=== PATIENT | male | born 1940 ===

== ENCOUNTER 2018-10-19 09:39 | Outpatient (CLI) | payer SELFPAY | END 2018-10-19 09:40 | disposition home or self-care (01) | LOC: C.LAB 09:39 | DX: N39.0 Urinary tract infection, site not specified (principal); I10 Essential (primary) hypertension; E11.9 Type 2 diabetes mellitus without complications; N41.9 Inflammatory disease of prostate, unspecified; D64.9 Anemia, unspecified; E78.00 Pure hypercholesterolemia, unspecified ==

== ENCOUNTER 2018-10-26 10:12 | Outpatient (CLI) | payer OTHER, SELFPAY | END 2018-10-26 10:13 | disposition home or self-care (01) | LOC: C.USIC 10:12 | DX: R18.8 Other ascites (principal); R10.9 Unspecified abdominal pain ==

== ENCOUNTER 2018-10-29 09:32 | Outpatient (CLI) | payer OTHER | END 2018-10-29 09:33 | disposition home or self-care (01) | LOC: C.LAB 09:32 | DX: K86.0 Alcohol-induced chronic pancreatitis (principal) ==

== ENCOUNTER 2018-11-01 08:01 | Outpatient (CLI) | payer OTHER | END 2018-11-01 08:02 | disposition home or self-care (01) | LOC: C.CTH 08:01 ==

== ENCOUNTER 2018-11-06 11:28 | Outpatient (CLI) | payer OTHER | END 2018-11-06 11:29 | disposition home or self-care (01) | LOC: C.EKG 11:28 | DX: Z01.818 Encounter for other preprocedural examination (principal) ==

== ENCOUNTER 2018-11-15 09:48 | Outpatient (CLI) | payer OTHER | END 2018-11-15 09:49 | disposition home or self-care (01) | LOC: C.PAT 09:48 | DX: K80.20 Calculus of gallbladder without cholecystitis without obstruction (principal) ==

== ENCOUNTER 2018-11-19 12:37 | Outpatient (CLI) | payer OTHER | END 2018-11-19 12:38 | disposition home or self-care (01) | LOC: C.RADH 12:37 | DX: J06.9 Acute upper respiratory infection, unspecified (principal) ==

== ENCOUNTER 2018-11-28 09:57 | Inpatient (IN) | payer MEDICAID, OTHER ==
[2018-11-28 10:40] VITALS: BMI 30.2
[2018-11-28] MEDS ORDERED: Iohexol 240 (50 ml) ONE (12:13)
[2018-11-28] MEDS ORDERED: Clindamycin 600mg/50ml NS 600 MG/50 ML BAG IVPB ONE (12:13)
[2018-11-28] MEDS ORDERED: Propofol 10 mg/ml Inj (20 ML) ONE (12:19)
[2018-11-28] MEDS ORDERED: Midazolam 2 MG/2 ML VIAL ONE (12:19)
[2018-11-28 14:00] LABS: HEMOGLOBIN 11.8 g/dL (12.0-18.0)
[2018-11-28] MEDS ORDERED: BUPIVACAINE 0.125%/0.9% NACL 600 ML IJ ONE (14:00)
[2018-11-28] MEDS ORDERED: Bupivacaine HCl 0.5% PF (10 ml) Inj ONE (14:07)
[2018-11-28] MEDS ORDERED: Rocuronium 10 mg/ml (5 ml) ONE (14:26)
[2018-11-28] MEDS ORDERED: Neostigmine 1:1000 (1 mg/ml) Inj ONE (14:29)
[2018-11-28] MEDS ORDERED: HYDROmorphone 0.5 mg/0.5 ml ISec IVP PRN ×2 (15:23→16:44)
[2018-11-28] MEDS ORDERED: Dextrose 50% SYRINGE Inj (50 ml) IV PRN (15:34)
[2018-11-28] MEDS ORDERED: Glucagon Recombinant 1 mg Inj IM PRN (15:34)
--- NOTE | 2018-11-28 15:37 | PCM.SURG1 ---
Surgeon's Initial Post Op Note - Surgeon's Notes Surgeon: Dr. Lopes Relay Assembler: Dr. Owen PGY3 Type of Anesthesia: General Endo Pre-Operative Diagnosis: chonic cholecystitis Operative Findings: see dictation Post-Operative Diagnosis: same Operation Performed: laparoscopic, converted to open, subtotal cholecystectomy Specimen/Specimens Removed: gallbladder Estimated Blood Loss: EBL {In ML}: 350 Blood Products Given: N/A Drains Used: Louis Post-Op Condition: Good Date of Surgery/Procedure: 11/28/18 Time of Surgery/Procedure: 15:37
--- NOTE | 2018-11-28 15:56 | CP.PCM.CON ---
History of Present Illness - History of Present Illness History of Present Illness: HOSPITALIST SERVICE 78M with a PMHx PMHx of DM II and BPH Patient was supposed to get a laparoscopic cholecystectomy on 11/19/18 but had a cough on 11/15 so it was postponed to today. Pt is now admitted s/p partial open cholecystectomy today w/ Dr Lopes. Medicine team was consulted to manage his DM. Pt is currently s/p anesthesia and has now current complaints. Pt reports he is compliant with his medications and reads his glucoses regularly. Pt has not drank alcohol or smoked tobacco in over 20 years and has permanantly quit. Pt denies any new onset abdominal pain since the surgery. PMHx: PMHx of DM II and BPH Sx: Cataract 2015 FH: denies soc: former smoker, former alcoholic Allergies: penicillin- rash Home Rx: Lantus 20 HS Linagliptin 5 qd Metformin 850 q8hrs Flomax 0.4 Proscar 5mg hs Review of Systems - Hematologic/Lymphatic Additional comments: HEENT No headaches, No blurry vision, No eye discharge, No hearing loss, No tinnitus, No sore throat. Cardiovascular No chest pain, No palpitation, No shortness of breath, No dyspnea on exertion. Respiratory No Shortness of breath, No cough, No diffuculty breathing. Gastrointestinal No nausea, No vomiting, 1 episode of diarrhea, No constipation, No blood in stool, generalized abdominal pain. Gentiourinary dysuria, frequency, No urgency, . Skin No rashes . Musculoskeletal No joint pain , No muscle weakness , No joint deformity. Past Patient History - Past Medical History & Family History Past Medical History?: Yes - Past Social History Smoking Status: Former Smoker - CARDIAC Hx Hypertension: Yes - PULMONARY Hx Respiratory Disorders: Yes Other/Comment: SOB ON EXERTION - NEUROLOGICAL Hx Neurological Disorder: No - HEENT Hx HEENT Problems: Yes Hx Cataracts: Yes - RENAL Hx Chronic Kidney Disease: No - ENDOCRINE/METABOLIC Hx Endocrine Disorders: Yes Hx Diabetes Mellitus Type 2: Yes - HEMATOLOGICAL/ONCOLOGICAL Hx Blood Disorders: No - INTEGUMENTARY Hx Dermatological Problems: No - MUSCULOSKELETAL/RHEUMATOLOGICAL Hx Musculoskeletal Disorders: Yes Other/Comment: DIFFICULTY WALKING USES CANE - GASTROINTESTINAL Hx Gastrointestinal Disorders: Yes Hx Gall Bladder Disease: Yes - GENITOURINARY/GYNECOLOGICAL Hx Genitourinary Disorders: Yes Hx Prostate Problems: Yes - PSYCHIATRIC Hx Psychophysiologic Disorder: No - SURGICAL HISTORY Hx Surgeries: Yes Hx Cataract Extraction: Yes (BOTH EYES) Hx Eye Surgery: Yes - ANESTHESIA Hx Anesthesia: Yes Hx Anesthesia Reactions: No Hx Malignant Hyperthermia: No Has any member of the family had a problem w/ anesthesia?: No Meds Allergies/Adverse Reactions: Allergies Allergy/AdvReac Type Severity Reaction Status Date / Time Penicillins Allergy Intermediate RASH Verified 11/16/18 10:45 trimethoprim Allergy Intermediate RASH Verified 11/28/18 10:52 - Medications Medications: Current Medications Acetaminophen (Tylenol 325mg Tab) 650 mg PO Q6 [facility] Dextrose (Dextrose 50% Inj) 0 ml IV STAT PRN; Protocol PRN Reason: Hypoglycemia Protocol Dextrose (Glutose 15) 0 gm PO ONCE PRN; Protocol PRN Reason: Hypoglycemia Protocol Docusate Sodium (Colace) 100 mg PO BID PRN PRN Reason: Constipation Finasteride (Proscar) 5 mg PO DAILY [facility] Glucagon (Glucagen Diagnostic Kit) 0 mg IM STAT PRN; Protocol PRN Reason: Hypoglycemia Protocol Home Med (Linagliptin [Tradjenta]) 1 tab PO DAILY [facility] Hydromorphone/Sodium Chloride (Dilaudid System Architect) 6 mg IV Q4H PRN; Protocol PRN Reason: Pain, moderate (4-7) BUPIVACAINE 0.125%/0.9% NACL (Bupivacaine-Ns 0.125% On-Q Customer Relations Representative) 600 mls @ 4 mls/hr IJ ONCE ONE Stop: 12/04/18 19:59 Acetaminophen (Ofirmev) 100 mls @ 400 mls/hr IV ONCE ONE Stop: 11/28/18 16:14 Dextrose/Sodium Chloride (Dextrose 5%/0.45% Ns 1000 Ml) 1,000 mls @ 100 mls/hr IV .Q10H [facility] Dextrose (Dextrose 5% In Water 1000 Ml) 1,000 mls @ 0 mls/hr IV .Q0M PRN; P rotocol PRN Reason: Hypoglycemia Protocol Insulin Human Regular (Novolin R) 0 unit SC ACHS [facility]; Protocol Metformin HCl (Glucophage) 850 mg PO TID [facility] Ondansetron HCl (Zofran Inj) 4 mg IVP ONCE PRN PRN Reason: Nausea/Vomiting Stop: 11/28/18 17:22 Ondansetron HCl (Zofran Inj) 4 mg IVP Q4 PRN PRN Reason: Nausea/Vomiting Tamsulosin HCl (Flomax) 0.4 mg PO DAILY [facility] Results - Vital Signs Recent Vital Signs: Last Vital Signs Temp 98.4 F 11/28/18 10:16 Pulse 70 11/28/18 10:16 Resp 18 11/28/18 10:16 BP 146/75 11/28/18 10:16 Pulse Ox 97 11/28/18 10:16 - Labs Result Diagrams: 11/28/18 15:55 Labs: Laboratory Results - last 24 hr 11/28/18 11/28/18 11/28/18 10:26 13:53 13:53 Hgb 11.8 L Hct 34.8 L POC Glucose (mg/dL) 78 Blood Type O POSITIVE Antibody Screen Negative 11/28/18 15:42 Hgb Hct POC Glucose (mg/dL) 106 Blood Type Antibody Screen Assessment & Plan - Assessment and Plan (Free Text) Assessment: 78M admitted for a patial open cholecystectomy Plan: Open Partial Cholecystectomy Sx today w/ Dr Lopes- partila resection of gallbladder tylenol 650 q6 for fevers Dilaudid 6 q4 prn colace 100 BID PRN zofran 4 q4 prn DM2 Lantus 20 HS- hold until Pt is eating ISS Metformin 850 q8 Accuchecks ACHS Liquid Diet BPH Proscar 5mg HS Flomax 0.4 daily Monitor I&Os PPX: Liquid Diet Hypoglycemic protocol
[2018-11-28 15:58] LABS: BASO # 0.1 K/uL (0.0-0.2); BASO % 0.7 % (0.0-2.0); EOS # 0.2 K/uL (0.0-0.7); EOS % 1.4 % (0.0-4.0); HEMOGLOBIN 10.9 g/dL (12.0-18.0); LYMPH # 2.2 K/uL (1.0-4.3); LYMPH % 18.1 % (20.0-40.0); MEAN CELL VOLUME 87.3 fL (80.0-94.0); MEAN CORPUSCULAR HEMOGLOBIN 29.2 pg (27.0-31.0); MEAN CORPUSCULAR HGB CONC 33.4 g/dL (33.0-37.0); MEAN PLATELET VOLUME 7.5 fL (7.2-11.7); MONO # 0.8 K/uL (0.0-0.8); MONO % 6.7 % (0.0-10.0); NEUT % 73.1 % (50.0-75.0); RBC 3.73 Mil/uL (4.40-5.90); RED CELL DISTRIBUTION WIDTH 15.2 % (11.5-14.5)
[2018-11-28 15:59] LABS: WHITE BLOOD COUNT 12.3 K/uL (4.8-10.8)
[2018-11-28 16:11] LABS: ALB/GLOB RATIO 1.3 (1.0-2.1); ALBUMIN 3.2 g/dL (3.5-5.0); ALT/SGPT 53 U/L (21-72); AST/SGOT 97 U/L (17-59); BLOOD UREA NITROGEN 17 mg/dL (9-20); CALCIUM 8.5 mg/dl (8.6-10.4); GFR NON-AFRICAN AMERICAN > 60
[2018-11-28] MEDS ORDERED: HYDROmorphone 0.5 mg/0.5 ml ISec ONE (16:52)
[2018-11-28] MEDS: Dextrose 5%/0.45% NS 1,000 ML IV SCH (17:00)
[2018-11-28] MEDS: (Novolin R) Insulin Human Regular 100 units/ml vial SC SCH ×2 (18:12→21:14)
[2018-11-28] MEDS ORDERED: (Lantus) Insulin Glargine, Recombinant SC SCH (22:00)
--- NOTE | 2018-11-29 01:00 | OP ---
PROCEDURE DATE: 11/28/2018 PREOPERATIVE DIAGNOSES: Cholecystitis, cholelithiasis. POSTOPERATIVE DIAGNOSES: Chronic acute cholecystitis, gangrenous gallbladder with pus. SURGEON: Landon Lopes Jr., MD. PIPE CLEANER: Dagmar Owen DO. ANESTHESIOLOGIST: Viola Muse CRNA. INDICATION: The patient is an elderly man who was found to have abdominal pain, gallstones, diabetes, for variety of reasons recommended to have gallbladder surgery particularly increasing pain. Preoperatively, he developed respiratory problems in his lungs and his surgery was postponed. He now presents for elective cholecystectomy. OPERATIVE FINDINGS: The gallbladder was chronically inflamed. It was packed with omentum. The minute we grabbed the gallbladder, pus poured out of the gallbladder. Because of this, we soon abandoned and attempted to carry on with laparoscopic cholecystectomy. Even open, because his gallbladder was so high up under the rib cage and even with the patient almost in vertical position, we had difficulty visualizing the gallbladder. So we carried out a long dissection, dissecting out the liver bed. We were unable to carry out a cholangiogram, although we attempted this, and then we had to leave a small portion of the gallbladder open. After removal of all the visible gallstones, irrigated these out and removed all the pus that was present and left this open to drain into the adjacent area. A large drain was left here to self suction out the fluid and the procedure was then terminated. Blood loss was 350 mL. An On-Q system was left in the subcostal wound prior to removing it, but basically, this was an elective cholecystectomy that required open intervention because of the pus filled chronically inflamed the gallbladder, and we had to switch to that. The operation was difficult for all these reasons and because of the severe inflammation of the gallbladder. Landon Lopes Jr., MD
[2018-11-29] MEDS: Dextrose 5%/0.45% NS 1,000 ML IV SCH ×2 (01:30→03:58)
--- NOTE | 2018-11-29 07:02 | CP.PCM.PN ---
<Rosa Jones - Last Filed: 11/29/18 15:33> Subjective - Date & Time of Evaluation Date of Evaluation: 11/29/18 Time of Evaluation: 07:20 - Subjective Subjective: Patient examined at bedside. Per reports, pt unable to void s/p youngblood removal, urinary retention requiring straight cath. Pt reports persistent difficulty voiding, admits to only being able to force very little urine out; denies sensation of needing to void. Pt reports pain is well controlled with medications. Pt reports he has only had water. Denies chest pain, SOB, nausea. Objective - Vital Signs/Intake and Output Vital Signs (last 24 hours): Temp Pulse Resp BP Pulse Ox 99.4 F 100 H 20 123/80 99 11/29/18 04:00 11/29/18 04:00 11/29/18 04:00 11/29/18 04:00 11/29/18 04:00 Intake and Output: 11/29/18 11/29/18 06:59 18:59 Intake Total 1370 Output Total 510 Balance 860 - Medications Medications: Current Medications Acetaminophen (Tylenol 325mg Tab) 650 mg PO Q6 [facility] Last Admin: 11/29/18 05:05 Dose: 650 mg Dextrose (Dextrose 50% Inj) 0 ml IV STAT PRN; Protocol PRN Reason: Hypoglycemia Protocol Dextrose (Glutose 15) 0 gm PO ONCE PRN; Protocol PRN Reason: Hypoglycemia Protocol Docusate Sodium (Colace) 100 mg PO BID PRN PRN Reason: Constipation Finasteride (Proscar) 5 mg PO DAILY [facility] Last Admin: 11/28/18 19:41 Dose: 5 mg Glucagon (Glucagen Diagnostic Kit) 0 mg IM STAT PRN; Protocol PRN Reason: Hypoglycemia Protocol Hydromorphone/Sodium Chloride (Dilaudid Utility Technician) 6 mg IV Q4H PRN; Protocol PRN Reason: Pain, moderate (4-7) Last Admin: 11/28/18 18:11 Dose: 6 mg BUPIVACAINE 0.125%/0.9% NACL (Bupivacaine-Ns 0.125% On-Q Bituminous Paving Machine Operator) 600 mls @ 4 mls/hr IJ ONCE ONE Stop: 12/04/18 19:59 Dextrose/Sodium Chloride (Dextrose 5%/0.45% Ns 1000 Ml) 1,000 mls @ 100 mls/hr IV .Q10H [facility] Last Admin: 11/29/18 03:58 Dose: 100 mls/hr Dextrose (Dextrose 5% In Water 1000 Ml) 1,000 mls @ 0 mls/hr IV .Q0M PRN; Protocol PRN Reason: Hypoglycemia Protocol Influenza Virus Vaccine (Flucelvax Quad [id number] Syr) 60 mcg IM .ONCE ONE Stop: 11/30/18 10:01 Insulin Glargine (Lantus) 10 unit SC [facility] Last Admin: 11/28/18 21:13 Dose: Not Given Insulin Human Regular (Novolin R) 0 unit SC ACHS [facility]; Protocol Last Admin: 11/28/18 21:14 Dose: Not Given Metformin HCl (Glucophage) 850 mg PO TID [facility] Ondansetron HCl (Zofran Inj) 4 mg IVP Q4 PRN PRN Reason: Nausea/Vomiting Pneumococcal Polyvalent Vaccine (Pneumovax 23 Vaccine) 0.5 ml IM .ONCE ONE Stop: 12/01/18 10:01 Sitagliptin Phosphate (Januvia) 50 mg PO DAILY [facility] Tamsulosin HCl (Flomax) 0.4 mg PO DAILY [facility] Last Admin: 11/28/18 19:41 Dose: 0.4 mg - Labs Labs: 11/28/18 15:55 11/28/18 15:55 - Constitutional Appears: Non-toxic, No Acute Distress - Head Exam Head Exam: ATRAUMATIC, NORMAL INSPECTION, NORMOCEPHALIC - Eye Exam Eye Exam: EOMI, Normal appearance - ENT Exam ENT Exam: Mucous Membranes Moist, Normal Exam - Neck Exam Neck Exam: Normal Inspection - Respiratory Exam Respiratory Exam: Decreased Breath Sounds, NORMAL BREATHING PATTERN. absent: Respiratory Distress - Cardiovascular Exam Cardiovascular Exam: Tachycardia, REGULAR RHYTHM - GI/Abdominal Exam GI & Abdominal Exam: Distended (mildly), Soft, Tenderness (diffuse) Additional comments: Multiple abdominal incisions bandaged, dried ss drainage. Right shavon drain w/ ss output. OnQ catheters in place - Extremities Exam Extremities Exam: Normal Inspection. absent: Calf Tenderness, Pedal Edema - Neurological Exam Neurological Exam: Alert, Awake, Oriented x3 - Psychiatric Exam Psychiatric exam: Normal Affect, Normal Mood - Skin Skin Exam: Dry, Normal Color, Warm Assessment and Plan - Assessment and Plan (Free Text) Assessment: 78 year old male w/ pmhx of DM2, BPH admitted s/p lap converted to open subtotal dalila; POD #1 Plan: DM2 increase Lantus to home dose of 20U HS continue home metformin 850mg po TID continue home januvia 50mg po qd accuchecks ACHS hypoglycemia protocol IVF D5 1/2NS @40, decreased 2/2 pt tolerating po diet and elevated BG Mod carb diet BPH/Urinary retention youngblood inserted 2/2 urinary retention s/p sx continue home flomax 0.4mg po qd continue home proscar 5mg po qd s/p open subtotal dalila; POD #1 -antiemetics -pain control -management per primary, Dr. Lopes PPX VTE: heparin q8, SCDs GI: Pepcid 20mg IVP qd PT encourage IS CXR: crowded bronchovascular markings and mild bibasilar atelectasis. Small effusions L>R; IVF decreased Discussed w/ Dr. Cornelius -Rosa Jones, PGY-1 <Trung Cornelius H - Last Filed: 11/29/18 15:53> Objective - Vital Signs/Intake and Output Vital Signs (last 24 hours): Temp Pulse Resp BP Pulse Ox 99.3 F 101 H 20 106/65 100 11/29/18 07:15 11/29/18 08:16 11/29/18 07:15 11/29/18 07:15 11/29/18 07:15 Intake and Output: 11/29/18 11/29/18 06:59 18:59 Intake Total 1370 Output Total 510 Balance 860 - Medications Medications: Current Medications Acetaminophen (Tylenol 325mg Tab) 650 mg PO Q6 [facility] Last Admin: 11/29/18 13:16 Dose: Not Given Dextrose (Dextrose 50% Inj) 0 ml IV STAT PRN; Protocol PRN Reason: Hypoglycemia Protocol Dextrose (Glutose 15) 0 gm PO ONCE PRN; Protocol PRN Reason: Hypoglycemia Protocol Docusate Sodium (Colace) 100 mg PO BID PRN PRN Reason: Constipation Famotidine (Pepcid) 20 mg IVP DAILY [facility] Last Admin: 11/29/18 13:09 Dose: 20 mg Finasteride (Proscar) 5 mg PO DAILY [facility] Last Admin: 11/29/18 09:25 Dose: 5 mg Glucagon (Glucagen Diagnostic Kit) 0 mg IM STAT PRN; Protocol PRN Reason: Hypoglycemia Protocol Heparin Sodium (Porcine) (Heparin) 5,000 units SC Q8 [facility] Last Admin: 11/29/18 13:30 Dose: 5,000 units Hydromorphone/Sodium Chloride (Dilaudid Utility Technician) 6 mg IV Q4H PRN; Protocol PRN Reason: Pain, moderate (4-7) Last Admin: 11/28/18 18:11 Dose: 6 mg BUPIVACAINE 0.125%/0.9% NACL (Bupivacaine-Ns 0.125% On-Q Bituminous Paving Machine Operator) 600 mls @ 4 mls/hr IJ ONCE ONE Stop: 12/04/18 19:59 Dextrose (Dextrose 5% In Water 1000 Ml) 1,000 mls @ 0 mls/hr IV .Q0M PRN; Protocol PRN Reason: Hypoglycemia Protocol Dextrose/Sodium Chloride (Dextrose 5%/0.45% Ns 1000 Ml) 1,000 mls @ 40 mls/hr IV .Q24H [facility] Influenza Virus Vaccine (Flucelvax Quad [id number] Syr) 60 mcg IM .ONCE ONE Stop: 11/30/18 10:01 Insulin Glargine (Lantus) 20 unit SC [facility] Metformin HCl (Glucophage) 850 mg PO TID [facility] Last Admin: 11/29/18 13:06 Dose: 850 mg Ondansetron HCl (Zofran Inj) 4 mg IVP Q4 PRN PRN Reason: Nausea/Vomiting Pneumococcal Polyvalent Vaccine (Pneumovax 23 Vaccine) 0.5 ml IM .ONCE ONE Stop: 12/01/18 10:01 Sitagliptin Phosphate (Januvia) 50 mg PO DAILY [facility] Last Admin: 11/29/18 09:25 Dose: 50 mg Tamsulosin HCl (Flomax) 0.4 mg PO DAILY [facility] Last Admin: 11/29/18 09:25 Dose: 0.4 mg - Labs Labs: 11/29/18 08:20 11/29/18 08:20 Attending/Attestation - Attestation I have personally seen and examined this patient.: Yes I have fully participated in the care of the patient.: Yes I have reviewed all pertinent clinical information, including history, physical exam and plan: Yes Notes (Text): Medical consult: Patient was seen and examined by me. Agree with the above note by the resident The patient was not in any acute distress when I came and saw him. His family member was present at bedside Today the blood sugar was in the mid 200 range. Yesterday we had a smaller dose of Lantus, today will increase up to 20 as he is on D5 and also eating (howbeit not much) Also chest XRAY portable to assess for fluid overload Also encouraged incentive spirometry. Patient is POD 1 of open cholesctomy He was started on a youngblood, on flomax and proscar Trung Cornelius
[2018-11-29] MEDS: (Novolin R) Insulin Human Regular 100 units/ml vial SC SCH ×2 (08:14→13:08)
--- NOTE | 2018-11-29 08:22 | CP.PCM.PN ---
Subjective - Date & Time of Evaluation Date of Evaluation: 11/29/18 Time of Evaluation: 07:00 - Subjective Subjective: General Surgery Dr. Lopes Pt seen and examined @bedside. Pt underwent lap, converted to open, subtotal cholecystectomy yesterday. Pt tolerated the procedure well w/ no complications. Overnight, pt had urinary retention, requiring straight cath. Pt had been unable to freely void this AM. Otherwise, pt has no complaints. denies F/C, N/V, D/C. pain well controlled w/ OnQ and dPCA. tolerating CLD. Louis drain 250mL serosanguinous drainage x24hrs Objective - Vital Signs/Intake and Output Vital Signs (last 24 hours): Temp Pulse Resp BP Pulse Ox 99.3 F 101 H 20 106/65 100 11/29/18 07:15 11/29/18 08:16 11/29/18 07:15 11/29/18 07:15 11/29/18 07:15 Intake and Output: 11/29/18 11/29/18 06:59 18:59 Intake Total 1370 Output Total 510 Balance 860 - Medications Medications: Current Medications Acetaminophen (Tylenol 325mg Tab) 650 mg PO Q6 [facility] Last Admin: 11/29/18 05:05 Dose: 650 mg Dextrose (Dextrose 50% Inj) 0 ml IV STAT PRN; Protocol PRN Reason: Hypoglycemia Protocol Dextrose (Glutose 15) 0 gm PO ONCE PRN; Protocol PRN Reason: Hypoglycemia Protocol Docusate Sodium (Colace) 100 mg PO BID PRN PRN Reason: Constipation Finasteride (Proscar) 5 mg PO DAILY [facility] Last Admin: 11/28/18 19:41 Dose: 5 mg Glucagon (Glucagen Diagnostic Kit) 0 mg IM STAT PRN; Protocol PRN Reason: Hypoglycemia Protocol Hydromorphone/Sodium Chloride (Dilaudid Cutter Grind Tool Technician) 6 mg IV Q4H PRN; Protocol PRN Reason: Pain, moderate (4-7) Last Admin: 11/28/18 18:11 Dose: 6 mg BUPIVACAINE 0.125%/0.9% NACL (Bupivacaine-Ns 0.125% On-Q Automotive Manager) 600 mls @ 4 mls/hr IJ ONCE ONE Stop: 12/04/18 19:59 Dextrose/Sodium Chloride (Dextrose 5%/0.45% Ns 1000 Ml) 1,000 mls @ 100 mls/hr IV .Q10H [facility] Last Admin: 11/29/18 03:58 Dose: 100 mls/hr Dextrose (Dextrose 5% In Water 1000 Ml) 1,000 mls @ 0 mls/hr IV .Q0M PRN; Protocol PRN Reason: Hypoglycemia Protocol Influenza Virus Vaccine (Flucelvax Quad [id number] Syr) 60 mcg IM .ONCE ONE Stop: 11/30/18 10:01 Insulin Glargine (Lantus) 10 unit SC HS [facility] Last Admin: 11/28/18 21:13 Dose: Not Given Insulin Human Regular (Novolin R) 0 unit SC ACHS [facility]; Protocol Last Admin: 11/29/18 08:14 Dose: 6 units Metformin HCl (Glucophage) 850 mg PO TID [facility] Ondansetron HCl (Zofran Inj) 4 mg IVP Q4 PRN PRN Reason: Nausea/Vomiting Pneumococcal Polyvalent Vaccine (Pneumovax 23 Vaccine) 0.5 ml IM .ONCE ONE Stop: 12/01/18 10:01 Sitagliptin Phosphate (Januvia) 50 mg PO DAILY [facility] Tamsulosin HCl (Flomax) 0.4 mg PO DAILY [facility] Last Admin: 11/28/18 19:41 Dose: 0.4 mg - Labs Labs: 11/28/18 15:55 11/28/18 15:55 - Constitutional Appears: Non-toxic, No Acute Distress - Head Exam Head Exam: NORMAL INSPECTION - Eye Exam Eye Exam: Normal appearance - ENT Exam ENT Exam: Mucous Membranes Moist - Respiratory Exam Respiratory Exam: NORMAL BREATHING PATTERN. absent: Accessory Muscle Use, Respiratory Distress - Cardiovascular Exam Cardiovascular Exam: Tachycardia, REGULAR RHYTHM. absent: Bradycardia - GI/Abdominal Exam GI & Abdominal Exam: Distended (mild), Soft, Tenderness (appropriate TTP). absent: Firm, Guarding, Rigid Additional comments: dressing c/d/i OnQ in place Louis drain in place - Extremities Exam Extremities Exam: Normal Inspection - Neurological Exam Neurological Exam: Alert, Awake, Oriented x3 - Psychiatric Exam Psychiatric exam: Normal Affect, Normal Mood - Skin Skin Exam: Dry, Intact, Normal Color, Warm Assessment and Plan - Assessment and Plan (Free Text) Assessment: 78 y/o M POD#1 s/p lap, converted to open, subtotal cholecystectomy Plan: - CLD - cont pain management - monitor drain output - place youngblood if repeat bladder scan >300mL - f/u AM labs - f/u medicine recs for BG management - DVT PPx - PT/OT - encourage OOb to chair/Amb/IS use Pt discussed w/ Dr. Moses Owen DO PGY3
[2018-11-29 08:28] LABS: BASO % 0.2 % (0.0-2.0); EOS % 0.1 % (0.0-4.0); HEMOGLOBIN 11.3 g/dL (12.0-18.0); LYMPH # 0.9 K/uL (1.0-4.3); MEAN CORPUSCULAR HEMOGLOBIN 29.2 pg (27.0-31.0); MEAN CORPUSCULAR HGB CONC 33.6 g/dL (33.0-37.0); MEAN PLATELET VOLUME 8.2 fL (7.2-11.7); MONO # 0.6 K/uL (0.0-0.8); MONO % 5.6 % (0.0-10.0); NEUT # 9.6 K/uL (1.8-7.0); NEUT % 86.1 % (50.0-75.0); PLATELET COUNT 330 K/uL (130-400); RBC 3.87 Mil/uL (4.40-5.90); RED CELL DISTRIBUTION WIDTH 15.3 % (11.5-14.5); WHITE BLOOD COUNT 11.2 K/uL (4.8-10.8)
[2018-11-29] MEDS ORDERED: Magnesium Oxide 400 mg Tab UD PO ONE ×2 (09:00→12:46)
[2018-11-29 09:01] LABS: ALB/GLOB RATIO 1.3 (1.0-2.1); ALBUMIN 3.3 g/dL (3.5-5.0); CALCIUM 7.8 mg/dl (8.6-10.4)
[2018-11-29 10:18] LABS: ANISOCYTOSIS SLIGHT; BANDS 4 % (0-2); HYPOCHROMIC SLIGHT; LYMPHOCYTE 5 % (20-40); MONOCYTE 3 % (0-10); NEUTROPHIL 88 % (50-75); PLATELET ESTIMATE NORMAL (NORMAL); POIKILOCYTOSIS SLIGHT; TOTAL CELLS COUNTED 100
--- NOTE | 2018-11-29 15:03 | RAD ---
Date of service: 11/29/2018 HISTORY: SOB COMPARISON: No prior. FINDINGS: LUNGS: Poor inspiration with low lung volumes, crowded bronchovascular markings, bibasilar atelectasis and suspected small bilateral effusions. PLEURA: As above. PLEURA: No significant pleural effusion identified, no pneumothorax apparent. CARDIOVASCULAR: No aortic atherosclerotic calcification present. Normal cardiac size. No pulmonary vascular congestion. OSSEOUS STRUCTURES: No significant abnormalities. VISUALIZED UPPER ABDOMEN: Normal. OTHER FINDINGS: None. IMPRESSION: Poor inspiration with low lung volumes, crowded bronchovascular markings and mild bibasilar atelectasis. Small effusions are also felt present left larger than right
[2018-11-29] MEDS ORDERED: Dextrose 5%/0.45% NS 1,000 ML IV SCH (15:05)
[2018-11-29] MEDS: (Lantus) Insulin Glargine, Recombinant SC SCH (21:43)
[2018-11-30] MEDS ORDERED: BUPIVACAINE 0.125%/0.9% NACL 600 ML IJ ONE ×3 (08:38→11:00)
--- NOTE | 2018-11-30 08:51 | CP.PCM.PN ---
Subjective - Date & Time of Evaluation Date of Evaluation: 11/30/18 Time of Evaluation: 08:48 - Subjective Subjective: SURGERY NOTE FOR DR. PARKER 78M seen and examined at bedside. Patient denies pain, denies nausea or vomiting, denies fevers or chills. Tolerating liquids. Objective - Vital Signs/Intake and Output Vital Signs (last 24 hours): Temp Pulse Resp BP Pulse Ox 98.5 F 98 H 18 118/72 97 11/30/18 07:00 11/30/18 07:53 11/30/18 07:00 11/30/18 07:00 11/30/18 07:00 Intake and Output: 11/30/18 11/30/18 06:59 18:59 Intake Total 564 320 Output Total 655 Balance -91 320 - Medications Medications: Current Medications Acetaminophen (Tylenol 325mg Tab) 650 mg PO Q6 [facility] Last Admin: 11/30/18 05:23 Dose: 650 mg Dextrose (Dextrose 50% Inj) 0 ml IV STAT PRN; Protocol PRN Reason: Hypoglycemia Protocol Dextrose (Glutose 15) 0 gm PO ONCE PRN; Protocol PRN Reason: Hypoglycemia Protocol Docusate Sodium (Colace) 100 mg PO BID PRN PRN Reason: Constipation Famotidine (Pepcid) 20 mg IVP DAILY [facility] Last Admin: 11/29/18 13:09 Dose: 20 mg Finasteride (Proscar) 5 mg PO DAILY [facility] Last Admin: 11/29/18 09:25 Dose: 5 mg Glucagon (Glucagen Diagnostic Kit) 0 mg IM STAT PRN; Protocol PRN Reason: Hypoglycemia Protocol Heparin Sodium (Porcine) (Heparin) 5,000 units SC Q8 [facility] Last Admin: 11/30/18 05:23 Dose: 5,000 units Dextrose (Dextrose 5% In Water 1000 Ml) 1,000 mls @ 0 mls/hr IV .Q0M PRN; Protocol PRN Reason: Hypoglycemia Protocol Dextrose/Sodium Chloride (Dextrose 5%/0.45% Ns 1000 Ml) 1,000 mls @ 40 mls/hr IV .Q24H [facility] Last Admin: 11/29/18 16:05 Dose: 40 mls/hr BUPIVACAINE 0.125%/0.9% NACL (Bupivacaine-Ns 0.125% On-Q Senior Graphic Designer) 600 mls @ 12 mls/hr IJ ONCE ONE Stop: 12/02/18 10:37 BUPIVACAINE 0.125%/0.9% NACL (Bupivacaine-Ns 0.125% On-Q Senior Graphic Designer) 600 mls @ 12 mls/hr IJ ONCE ONE Stop: 11/30/18 15:59 Influenza Virus Vaccine (Flucelvax Quad [id number] Syr) 60 mcg IM .ONCE ONE Stop: 11/30/18 10:01 Insulin Glargine (Lantus) 20 unit SC HS [facility] Last Admin: 11/29/18 21:43 Dose: 20 units Metformin HCl (Glucophage) 850 mg PO TID [facility] Last Admin: 11/29/18 17:01 Dose: 850 mg Ondansetron HCl (Zofran Inj) 4 mg IVP Q4 PRN PRN Reason: Nausea/Vomiting Pneumococcal Polyvalent Vaccine (Pneumovax 23 Vaccine) 0.5 ml IM .ONCE ONE Stop: 12/01/18 10:01 Sitagliptin Phosphate (Januvia) 50 mg PO DAILY [facility] Last Admin: 11/29/18 09:25 Dose: 50 mg Tamsulosin HCl (Flomax) 0.4 mg PO DAILY [facility] Last Admin: 11/29/18 09:25 Dose: 0.4 mg Tramadol HCl (Ultram) 50 mg PO Q6H PRN PRN Reason: Pain, moderate (4-7) - Labs Labs: 11/29/18 08:20 11/29/18 08:20 - Constitutional Appears: Non-toxic, No Acute Distress - Respiratory Exam Respiratory Exam: Clear to Ausculation Bilateral, NORMAL BREATHING PATTERN - Cardiovascular Exam Cardiovascular Exam: REGULAR RHYTHM, +S1, +S2 - GI/Abdominal Exam GI & Abdominal Exam: Soft, Tenderness. absent: Distended, Firm, Guarding, Rigid, Rebound Additional comments: shavon in place, serous output incision CDI On-Q in place - Neurological Exam Neurological Exam: Alert, Awake - Skin Skin Exam: Dry, Intact, Normal Color, Warm Assessment and Plan - Assessment and Plan (Free Text) Assessment: 78M s/p open subtotal cholecystectomy POD#2 Plan: - Advance diet - DC STEEL ROD BUSTER, DC youngblood - Trial of void - On-Q ball renewal Further recs discuss with Dr. Moses Traore, PGY3
[2018-11-30] MEDS ORDERED: Influenza Vaccine 60 mcg/0.5 mL SYR (4YR UP) IM ONE (10:00)
--- NOTE | 2018-11-30 11:23 | CP.PCM.PN ---
<Rosa Jones - Last Filed: 11/30/18 14:19> Subjective - Date & Time of Evaluation Date of Evaluation: 11/30/18 Time of Evaluation: 10:00 - Subjective Subjective: Patient examined at bedside with family in room. No acute overnight events. Patient reports pain is much improved today. Reports he has not eaten much 2/2 decreased appetite. Denies chest pain, SOB, nausea, diarrhea. Objective - Vital Signs/Intake and Output Vital Signs (last 24 hours): Temp Pulse Resp BP Pulse Ox 98.5 F 98 H 18 118/72 97 11/30/18 07:00 11/30/18 07:53 11/30/18 07:00 11/30/18 07:00 11/30/18 07:00 Intake and Output: 11/30/18 11/30/18 06:59 18:59 Intake Total 564 320 Output Total 655 Balance -91 320 - Medications Medications: Current Medications Acetaminophen (Tylenol 325mg Tab) 650 mg PO Q6 [facility] Last Admin: 11/30/18 11:09 Dose: 650 mg Dextrose (Dextrose 50% Inj) 0 ml IV STAT PRN; Protocol PRN Reason: Hypoglycemia Protocol Dextrose (Glutose 15) 0 gm PO ONCE PRN; Protocol PRN Reason: Hypoglycemia Protocol Docusate Sodium (Colace) 100 mg PO BID PRN PRN Reason: Constipation Famotidine (Pepcid) 20 mg IVP DAILY [facility] Last Admin: 11/30/18 09:07 Dose: 20 mg Finasteride (Proscar) 5 mg PO DAILY [facility] Last Admin: 11/30/18 09:06 Dose: 5 mg Glucagon (Glucagen Diagnostic Kit) 0 mg IM STAT PRN; Protocol PRN Reason: Hypoglycemia Protocol Heparin Sodium (Porcine) (Heparin) 5,000 units SC Q8 [facility] Last Admin: 11/30/18 05:23 Dose: 5,000 units Dextrose (Dextrose 5% In Water 1000 Ml) 1,000 mls @ 0 mls/hr IV .Q0M PRN; Protocol PRN Reason: Hypoglycemia Protocol BUPIVACAINE 0.125%/0.9% NACL (Bupivacaine-Ns 0.125% On-Q Superintendent Automotive) 600 mls @ 6 mls/hr IJ ONCE ONE Stop: 12/04/18 14:59 Insulin Glargine (Lantus) 20 unit SC HS [facility] Last Admin: 11/29/18 21:43 Dose: 20 units Metformin HCl (Glucophage) 850 mg PO TID [facility] Last Admin: 11/30/18 09:06 Dose: 850 mg Ondansetron HCl (Zofran Inj) 4 mg IVP Q4 PRN PRN Reason: Nausea/Vomiting Pneumococcal Polyvalent Vaccine (Pneumovax 23 Vaccine) 0.5 ml IM .ONCE ONE Stop: 12/01/18 10:01 Sitagliptin Phosphate (Januvia) 50 mg PO DAILY [facility] Last Admin: 11/30/18 09:06 Dose: 50 mg Tamsulosin HCl (Flomax) 0.4 mg PO DAILY [facility] Last Admin: 11/30/18 09:06 Dose: 0.4 mg Tramadol HCl (Ultram) 50 mg PO Q6H PRN PRN Reason: Pain, moderate (4-7) - Labs Labs: 11/29/18 08:20 11/29/18 08:20 - Additional Findings Additional findings: - Constitutional Appears: Non-toxic, No Acute Distress - Head Exam Head Exam: ATRAUMATIC, NORMAL INSPECTION, NORMOCEPHALIC - Eye Exam Eye Exam: EOMI, Normal appearance - ENT Exam ENT Exam: Mucous Membranes Moist, Normal Exam - Neck Exam Neck Exam: Normal Inspection - Respiratory Exam Respiratory Exam: Decreased Breath Sounds, NORMAL BREATHING PATTERN. absent: Respiratory Distress - Cardiovascular Exam Cardiovascular Exam: Tachycardia, REGULAR RHYTHM - GI/Abdominal Exam GI & Abdominal Exam: Distended (mildly), Soft, Tenderness (diffuse) Additional comments: Multiple abdominal incisions bandaged, dried ss drainage. Right shavon drain w/ ss output. OnQ catheters in place Youngblood draining clear yellow urine - Extremities Exam Extremities Exam: Normal Inspection. absent: Calf Tenderness, Pedal Edema - Neurological Exam Neurological Exam: Alert, Awake, Oriented x3 - Psychiatric Exam Psychiatric exam: Normal Affect, Normal Mood - Skin Skin Exam: Dry, Normal Color, Warm Assessment and Plan - Assessment and Plan (Free Text) Assessment: 78 year old male w/ pmhx of DM2, BPH admitted s/p lap converted to open subtotal dalila; POD #2 Plan: DM2 continue home 20U HS continue home metformin 850mg po TID continue home januvia 50mg po qd accuchecks ACHS hypoglycemia protocol IVF stopped, pt tolerating po intake Mod carb diet BPH/Urinary retention youngblood inserted 2/2 urinary retention s/p sx continue home flomax 0.4mg po qd continue home proscar 5mg po qd s/p open subtotal dalila; POD #2 -antiemetics -pain control -management per primary, Dr. Lopes PPX VTE: heparin q8, SCDs GI: Pepcid 20mg IVP qd PT encourage IS CXR: crowded bronchovascular markings and mild bibasilar atelectasis. Small effusions L>R; IVF decreased Discussed w/ Dr. Cornelius -Rosa Jones, PGY-1 <Trung Cornelius H - Last Filed: 11/30/18 14:57> Objective - Vital Signs/Intake and Output Vital Signs (last 24 hours): Temp Pulse Resp BP Pulse Ox 98.5 F 94 H 18 118/72 97 11/30/18 07:00 11/30/18 13:36 11/30/18 07:00 11/30/18 07:00 11/30/18 07:00 Intake and Output: 11/30/18 11/30/18 06:59 18:59 Intake Total 564 570 Output Total 655 300 Balance -91 270 - Medications Medications: Current Medications Acetaminophen (Tylenol 325mg Tab) 650 mg PO Q6 [facility] Last Admin: 11/30/18 11:09 Dose: 650 mg Dextrose (Dextrose 50% Inj) 0 ml IV STAT PRN; Protocol PRN Reason: Hypoglycemia Protocol Dextrose (Glutose 15) 0 gm PO ONCE PRN; Protocol PRN Reason: Hypoglycemia Protocol Docusate Sodium (Colace) 100 mg PO BID PRN PRN Reason: Constipation Famotidine (Pepcid) 20 mg IVP DAILY [facility] Last Admin: 11/30/18 09:07 Dose: 20 mg Finasteride (Proscar) 5 mg PO DAILY [facility] Last Admin: 11/30/18 09:06 Dose: 5 mg Glucagon (Glucagen Diagnostic Kit) 0 mg IM STAT PRN; Protocol PRN Reason: Hypoglycemia Protocol Heparin Sodium (Porcine) (Heparin) 5,000 units SC Q8 [facility] Last Admin: 11/30/18 13:01 Dose: 5,000 units Dextrose (Dextrose 5% In Water 1000 Ml) 1,000 mls @ 0 mls/hr IV .Q0M PRN; Protocol PRN Reason: Hypoglycemia Protocol BUPIVACAINE 0.125%/0.9% NACL (Bupivacaine-Ns 0.125% On-Q Superintendent Automotive) 600 mls @ 6 mls/hr IJ ONCE ONE Stop: 12/04/18 14:59 Insulin Glargine (Lantus) 20 unit SC HS [facility] Last Admin: 11/29/18 21:43 Dose: 20 units Metformin HCl (Glucophage) 850 mg PO TID [facility] Last Admin: 11/30/18 13:01 Dose: 850 mg Ondansetron HCl (Zofran Inj) 4 mg IVP Q4 PRN PRN Reason: Nausea/Vomiting Pneumococcal Polyvalent Vaccine (Pneumovax 23 Vaccine) 0.5 ml IM .ONCE ONE Stop: 12/01/18 10:01 Sitagliptin Phosphate (Januvia) 50 mg PO DAILY [facility] Last Admin: 11/30/18 09:06 Dose: 50 mg Tamsulosin HCl (Flomax) 0.4 mg PO DAILY [facility] Last Admin: 11/30/18 09:06 Dose: 0.4 mg Tramadol HCl (Ultram) 50 mg PO Q6H PRN PRN Reason: Pain, moderate (4-7) Last Admin: 11/30/18 14:20 Dose: 50 mg - Labs Labs: 11/30/18 11:25 11/30/18 11:25 Attending/Attestation - Attestation I have personally seen and examined this patient.: Yes I have fully participated in the care of the patient.: Yes I have reviewed all pertinent clinical information, including history, physical exam and plan: Yes Notes (Text): 11/30/18 14:51 Medical attending: Patient was seen and examined by me, reviewed the above note by the resident The patient is tolerating a little bit of his diet. Yesterday the blood sugar was in the mid 200 range. Yesterday the lantus was increased from 10 to 20 units [facility] Continued to encourag incentive spirometry Also the patient still has the SKYLAR drain as well as the youngblood He says the pain is controlled at this time with the [employer] REPORTER pump Trung Cornelius
[2018-11-30 11:31] LABS: BASO % 0.3 % (0.0-2.0); EOS # 0.2 K/uL (0.0-0.7); EOS % 1.6 % (0.0-4.0); HEMOGLOBIN 9.4 g/dL (12.0-18.0); MEAN CELL VOLUME 86.2 fL (80.0-94.0); MEAN CORPUSCULAR HGB CONC 33.7 g/dL (33.0-37.0); MEAN PLATELET VOLUME 7.7 fL (7.2-11.7); MONO # 0.7 K/uL (0.0-0.8); MONO % 5.8 % (0.0-10.0); NEUT # 10.4 K/uL (1.8-7.0); NEUT % 84.3 % (50.0-75.0); PLATELET COUNT 290 K/uL (130-400); RBC 3.22 Mil/uL (4.40-5.90); RED CELL DISTRIBUTION WIDTH 15.3 % (11.5-14.5); WHITE BLOOD COUNT 12.3 K/uL (4.8-10.8)
[2018-11-30 11:47] LABS: ALB/GLOB RATIO 1.2 (1.0-2.1); ALBUMIN 3.2 g/dL (3.5-5.0); ALT/SGPT 32 U/L (21-72); AST/SGOT 56 U/L (17-59); BLOOD UREA NITROGEN 20 mg/dL (9-20); CALCIUM 8.2 mg/dl (8.6-10.4); GFR NON-AFRICAN AMERICAN > 60
[2018-11-30 12:23] LABS: BANDS 6 % (0-2); LYMPHOCYTE 8 % (20-40); MONOCYTE 5 % (0-10); NEUTROPHIL 80 % (50-75); PLATELET ESTIMATE NORMAL (NORMAL); REACTIVE LYMPHOCYTES 1 % (0-0); TOTAL CELLS COUNTED 100
[2018-11-30 12:24] LABS: ANISOCYTOSIS SLIGHT; LARGE PLATELETS PRESENT
[2018-11-30] MEDS ORDERED: Magnesium Oxide 400 mg Tab UD PO ONE (12:37)
[2018-11-30] MEDS ORDERED: Aluminum Hydroxide/Magnesium Hydroxide Susp (30 mL) PO ONE (19:14)
[2018-11-30] MEDS ORDERED: Alum-Mag Hydrox-Simethicone Susp (30 mL) PO PRN (19:43)
[2018-11-30] MEDS: (Lantus) Insulin Glargine, Recombinant SC SCH (21:13)
--- NOTE | 2018-12-01 05:08 | CP.PCM.PN ---
<Belkis Mckenna Y - Last Filed: 12/01/18 06:03> Subjective - Date & Time of Evaluation Date of Evaluation: 12/01/18 Time of Evaluation: 06:50 - Subjective Subjective: PGY-1 Medicine Progress Note for Dr. Cornelius Patient was seen and examined at bedside in no acute distress. Nurse reports SUGAR SAMPLER pump becoming partially dislodged overnight as the patient was urinating. Patient has no new complaints and has been tolerating diet well. Denies chest pain, fever, chills, shortness of breath, abdominal pain, n/v/c/d or urinary complaints. Denies pain. Objective - Vital Signs/Intake and Output Vital Signs (last 24 hours): Temp Pulse Resp BP Pulse Ox 98.5 F 87 20 137/75 96 11/30/18 23:40 12/01/18 01:00 11/30/18 23:40 11/30/18 23:40 11/30/18 23:40 Intake and Output: 11/30/18 12/01/18 18:59 06:59 Intake Total 570 240 Output Total 300 290 Balance 270 -50 - Medications Medications: Current Medications Acetaminophen (Tylenol 325mg Tab) 650 mg PO Q6 [facility] Last Admin: 12/01/18 00:01 Dose: 650 mg Al Hydrox/Mg Hydrox/Simethicone (Maalox Plus 30 Ml) 30 ml PO Q6H PRN PRN Reason: Indigestion / Heartburn Dextrose (Dextrose 50% Inj) 0 ml IV STAT PRN; Protocol PRN Reason: Hypoglycemia Protocol Dextrose (Glutose 15) 0 gm PO ONCE PRN; Protocol PRN Reason: Hypoglycemia Protocol Docusate Sodium (Colace) 100 mg PO BID PRN PRN Reason: Constipation Famotidine (Pepcid) 20 mg IVP DAILY [facility] Last Admin: 11/30/18 09:07 Dose: 20 mg Finasteride (Proscar) 5 mg PO DAILY [facility] Last Admin: 11/30/18 09:06 Dose: 5 mg Glucagon (Glucagen Diagnostic Kit) 0 mg IM STAT PRN; Protocol PRN Reason: Hypoglycemia Protocol Heparin Sodium (Porcine) (Heparin) 5,000 units SC Q8 [facility] Last Admin: 11/30/18 21:13 Dose: 5,000 units Dextrose (Dextrose 5% In Water 1000 Ml) 1,000 mls @ 0 mls/hr IV .Q0M PRN; Protocol PRN Reason: Hypoglycemia Protocol BUPIVACAINE 0.125%/0.9% NACL (Bupivacaine-Ns 0.125% On-Q Geographic Information System Analyst) 600 mls @ 6 mls/hr IJ ONCE ONE Stop: 12/04/18 14:59 Insulin Glargine (Lantus) 20 unit SC HS [facility] Last Admin: 11/30/18 21:13 Dose: 20 units Metformin HCl (Glucophage) 850 mg PO TID [facility] Last Admin: 11/30/18 17:38 Dose: 850 mg Ondansetron HCl (Zofran Inj) 4 mg IVP Q4 PRN PRN Reason: Nausea/Vomiting Pantoprazole Sodium (Protonix Inj) 40 mg IVP DAILY [facility] Pneumococcal Polyvalent Vaccine (Pneumovax 23 Vaccine) 0.5 ml IM .ONCE ONE Stop: 12/01/18 10:01 Sitagliptin Phosphate (Januvia) 50 mg PO DAILY [facility] Last Admin: 11/30/18 09:06 Dose: 50 mg Tamsulosin HCl (Flomax) 0.4 mg PO DAILY [facility] Last Admin: 11/30/18 09:06 Dose: 0.4 mg Tramadol HCl (Ultram) 50 mg PO Q6H PRN PRN Reason: Pain, moderate (4-7) Last Admin: 12/01/18 04:50 Dose: 50 mg - Labs Labs: 11/30/18 11:25 11/30/18 11:25 - Constitutional Appears: Non-toxic, No Acute Distress - Head Exam Head Exam: ATRAUMATIC, NORMAL INSPECTION, NORMOCEPHALIC - Eye Exam Eye Exam: EOMI, Normal appearance - ENT Exam ENT Exam: Mucous Membranes Moist, Normal Exam - Neck Exam Neck Exam: Normal Inspection - Respiratory Exam Respiratory Exam: Decreased Breath Sounds, NORMAL BREATHING PATTERN. absent: Rales, Wheezes - Cardiovascular Exam Cardiovascular Exam: Tachycardia, +S1, +S2 - GI/Abdominal Exam GI & Abdominal Exam: Distended (mildly), Soft, Tenderness (diffuse) Additional comments: Multiple abdominal incisions bandaged, dried ss drainage. Right shavon drain w/ ss output. OnQ catheters in place. - Extremities Exam Extremities Exam: Normal Inspection. absent: Calf Tenderness, Pedal Edema - Neurological Exam Neurological Exam: Alert, Awake, Oriented x3 - Psychiatric Exam Psychiatric exam: Normal Affect, Normal Mood - Skin Skin Exam: Dry, Normal Color, Warm Assessment and Plan - Assessment and Plan (Free Text) Assessment: 78 year old male w/ pmhx of DM2, BPH admitted s/p lap converted to open subtotal dalila; POD #3 Plan: DM2 continue home 20U HS continue home metformin 850mg po TID continue home januvia 50mg po qd accuchecks ACHS hypoglycemia protocol IVF stopped, pt tolerating po intake Mod carb diet BPH/Urinary retention youngblood inserted 2/2 urinary retention s/p sx continue home flomax 0.4mg po qd continue home proscar 5mg po qd s/p open subtotal dalila; POD #3 -antiemetics -pain control -management per primary, Dr. Lopes PPX VTE: heparin q8, SCDs GI: Pepcid 20mg IVP qd PT encourage IS CXR: crowded bronchovascular markings and mild bibasilar atelectasis. Small effusions L>R; IVF decreased <Trung Cornelius H - Last Filed: 12/01/18 10:00> Objective - Vital Signs/Intake and Output Vital Signs (last 24 hours): Temp Pulse Resp BP Pulse Ox 97.9 F 81 20 138/74 100 12/01/18 07:10 12/01/18 07:38 12/01/18 07:10 12/01/18 07:10 12/01/18 07:10 Intake and Output: 12/01/18 12/01/18 06:59 18:59 Intake Total 240 Output Total 660 Balance -420 - Medications Medications: Current Medications Acetaminophen (Tylenol 325mg Tab) 650 mg PO Q6 [facility] Last Admin: 12/01/18 05:44 Dose: Not Given Al Hydrox/Mg Hydrox/Simethicone (Maalox Plus 30 Ml) 30 ml PO Q6H PRN PRN Reason: Indigestion / Heartburn Dextrose (Dextrose 50% Inj) 0 ml IV STAT PRN; Protocol PRN Reason: Hypoglycemia Protocol Dextrose (Glutose 15) 0 gm PO ONCE PRN; Protocol PRN Reason: Hypoglycemia Protocol Docusate Sodium (Colace) 100 mg PO BID PRN PRN Reason: Constipation Famotidine (Pepcid) 20 mg IVP DAILY [facility] Last Admin: 12/01/18 09:35 Dose: 20 mg Finasteride (Proscar) 5 mg PO DAILY [facility] Last Admin: 12/01/18 09:35 Dose: 5 mg Glucagon (Glucagen Diagnostic Kit) 0 mg IM STAT PRN; Protocol PRN Reason: Hypoglycemia Protocol Heparin Sodium (Porcine) (Heparin) 5,000 units SC Q8 [facility] Last Admin: 12/01/18 05:39 Dose: 5,000 units Dextrose (Dextrose 5% In Water 1000 Ml) 1,000 mls @ 0 mls/hr IV .Q0M PRN; Protocol PRN Reason: Hypoglycemia Protocol BUPIVACAINE 0.125%/0.9% NACL (Bupivacaine-Ns 0.125% On-Q Geographic Information System Analyst) 600 mls @ 6 mls/hr IJ ONCE ONE Stop: 12/04/18 14:59 Insulin Glargine (Lantus) 20 unit SC HS [facility] Last Admin: 11/30/18 21:13 Dose: 20 units Metformin HCl (Glucophage) 850 mg PO TID [facility] Last Admin: 12/01/18 09:35 Dose: 850 mg Ondansetron HCl (Zofran Inj) 4 mg IVP Q4 PRN PRN Reason: Nausea/Vomiting Pantoprazole Sodium (Protonix Inj) 40 mg IVP DAILY [facility] Pneumococcal Polyvalent Vaccine (Pneumovax 23 Vaccine) 0.5 ml IM .ONCE ONE Stop: 12/01/18 10:01 Last Admin: 12/01/18 09:34 Dose: 0.5 ml Sitagliptin Phosphate (Januvia) 50 mg PO DAILY [facility] Last Admin: 12/01/18 09:35 Dose: 50 mg Tamsulosin HCl (Flomax) 0.4 mg PO DAILY [facility] Last Admin: 12/01/18 09:36 Dose: 0.4 mg Tramadol HCl (Ultram) 50 mg PO Q6H PRN PRN Reason: Pain, moderate (4-7) Last Admin: 12/01/18 04:50 Dose: 50 mg - Labs Labs: 12/01/18 07:03 12/01/18 07:03 Attending/Attestation - Attestation I have personally seen and examined this patient.: Yes I have fully participated in the care of the patient.: Yes I have reviewed all pertinent clinical information, including history, physical exam and plan: Yes Notes (Text): 12/01/18 09:55 Medical attending: Patient was seen and examined by me. Agree with the above note by the resident The patient was not in any acute distress Two family members present at bedside and one remarked that earlier the patient appeared confused to them early in the morning I asked person place and time and he was able to do so correctly. He remembered his birthday and his address correctly Hgb is 9.0, continue to monitor WBC stable, no fevers, encouraged incentive spirometry Family says they have been walking with him very far in the hallway Appettie is poor they say Blood sugars recently 218, 168, 156, 127 Some of the dressing is off today and the janene are all in, there is no discharge, clean and dry Also it seems they changed from the SUGAR SAMPLER pump over to a bupivicaine pump Trung Cornelius
[2018-12-01 07:13] LABS: BASO % 0.3 % (0.0-2.0); EOS # 0.1 K/uL (0.0-0.7); EOS % 1.4 % (0.0-4.0); LYMPH # 0.6 K/uL (1.0-4.3); LYMPH % 6.6 % (20.0-40.0); MEAN CELL VOLUME 87.2 fL (80.0-94.0); MEAN CORPUSCULAR HEMOGLOBIN 29.8 pg (27.0-31.0); MEAN CORPUSCULAR HGB CONC 34.2 g/dL (33.0-37.0); MEAN PLATELET VOLUME 8.1 fL (7.2-11.7); MONO # 0.5 K/uL (0.0-0.8); MONO % 4.9 % (0.0-10.0); NEUT # 8.6 K/uL (1.8-7.0); NEUT % 86.8 % (50.0-75.0); PLATELET COUNT 280 K/uL (130-400); RBC 3.03 Mil/uL (4.40-5.90); WHITE BLOOD COUNT 9.9 K/uL (4.8-10.8)
[2018-12-01 08:13] LABS: ALB/GLOB RATIO 1.1 (1.0-2.1); ALBUMIN 3.1 g/dL (3.5-5.0); ALT/SGPT 27 U/L (21-72); AST/SGOT 46 U/L (17-59); BLOOD UREA NITROGEN 18 mg/dL (9-20); CALCIUM 8.1 mg/dl (8.6-10.4); GFR NON-AFRICAN AMERICAN > 60
--- NOTE | 2018-12-01 08:40 | CP.PCM.PN ---
Subjective - Date & Time of Evaluation Date of Evaluation: 12/01/18 Time of Evaluation: 07:00 - Subjective Subjective: GENERAL SURGERY NOTE FOR DR. PARKER Patient seen and examined at bedside. No acute event overnight. He states pain is controlled. Patient denies nausea/vomiting or fevers/chills. Shavon drain with 110 cc/24hrs of serosanguinous output. He is tolerating diet. No complaints at this time. Objective - Vital Signs/Intake and Output Vital Signs (last 24 hours): Temp Pulse Resp BP Pulse Ox 97.9 F 81 20 138/74 100 12/01/18 07:10 12/01/18 07:38 12/01/18 07:10 12/01/18 07:10 12/01/18 07:10 Intake and Output: 12/01/18 12/01/18 06:59 18:59 Intake Total 240 Output Total 660 Balance -420 - Medications Medications: Current Medications Acetaminophen (Tylenol 325mg Tab) 650 mg PO Q6 [facility] Last Admin: 12/01/18 05:44 Dose: Not Given Al Hydrox/Mg Hydrox/Simethicone (Maalox Plus 30 Ml) 30 ml PO Q6H PRN PRN Reason: Indigestion / Heartburn Dextrose (Dextrose 50% Inj) 0 ml IV STAT PRN; Protocol PRN Reason: Hypoglycemia Protocol Dextrose (Glutose 15) 0 gm PO ONCE PRN; Protocol PRN Reason: Hypoglycemia Protocol Docusate Sodium (Colace) 100 mg PO BID PRN PRN Reason: Constipation Famotidine (Pepcid) 20 mg IVP DAILY [facility] Last Admin: 11/30/18 09:07 Dose: 20 mg Finasteride (Proscar) 5 mg PO DAILY [facility] Last Admin: 11/30/18 09:06 Dose: 5 mg Glucagon (Glucagen Diagnostic Kit) 0 mg IM STAT PRN; Protocol PRN Reason: Hypoglycemia Protocol Heparin Sodium (Porcine) (Heparin) 5,000 units SC Q8 [facility] Last Admin: 12/01/18 05:39 Dose: 5,000 units Dextrose (Dextrose 5% In Water 1000 Ml) 1,000 mls @ 0 mls/hr IV .Q0M PRN; Protocol PRN Reason: Hypoglycemia Protocol BUPIVACAINE 0.125%/0.9% NACL (Bupivacaine-Ns 0.125% On-Q Concrete Sculptor) 600 mls @ 6 mls/hr IJ ONCE ONE Stop: 12/04/18 14:59 Insulin Glargine (Lantus) 20 unit SC HS [facility] Last Admin: 11/30/18 21:13 Dose: 20 units Metformin HCl (Glucophage) 850 mg PO TID [facility] Last Admin: 11/30/18 17:38 Dose: 850 mg Ondansetron HCl (Zofran Inj) 4 mg IVP Q4 PRN PRN Reason: Nausea/Vomiting Pantoprazole Sodium (Protonix Inj) 40 mg IVP DAILY [facility] Pneumococcal Polyvalent Vaccine (Pneumovax 23 Vaccine) 0.5 ml IM .ONCE ONE Stop: 12/01/18 10:01 Sitagliptin Phosphate (Januvia) 50 mg PO DAILY [facility] Last Admin: 11/30/18 09:06 Dose: 50 mg Tamsulosin HCl (Flomax) 0.4 mg PO DAILY [facility] Last Admin: 11/30/18 09:06 Dose: 0.4 mg Tramadol HCl (Ultram) 50 mg PO Q6H PRN PRN Reason: Pain, moderate (4-7) Last Admin: 12/01/18 04:50 Dose: 50 mg - Labs Labs: 12/01/18 07:03 12/01/18 07:03 - Additional Findings Additional findings: - Constitutional Appears: Non-toxic, No Acute Distress - Respiratory Exam Respiratory Exam: Clear to Ausculation Bilateral, NORMAL BREATHING PATTERN - Cardiovascular Exam Cardiovascular Exam: REGULAR RHYTHM, +S1, +S2 - GI/Abdominal Exam GI & Abdominal Exam: Soft, Tenderness. absent: Distended, Firm, Guarding, Rigid, Rebound Additional comments: shavon in place, serous output incision CDI On-Q in place - Neurological Exam Neurological Exam: Alert, Awake - Skin Skin Exam: Dry, Intact, Normal Color, Warm Assessment and Plan - Assessment and Plan (Free Text) Assessment: 78M s/p open subtotal cholecystectomy POD#3 Plan: - Diabetic diet - Pain control - Anti-emetics PRN - Continue On-Q - I's & O's - PT - Encourage OOB/Ambulation/IS - Further recommendations as per Dr. Moses Ramirez PGY2
[2018-12-01] MEDS ORDERED: Pneumococcal 23-Valent Vaccine IM ONE (10:00)
[2018-12-01 10:27] LABS: BANDS 1 % (0-2); LYMPHOCYTE 7 % (20-40); MONOCYTE 5 % (0-10); NEUTROPHIL 87 % (50-75); PLATELET ESTIMATE NORMAL (NORMAL); TOTAL CELLS COUNTED 100
[2018-12-01 10:30] LABS: ANISOCYTOSIS SLIGHT; HYPOCHROMIC SLIGHT; POLYCHROMIC SLIGHT
[2018-12-01 10:31] LABS: LARGE PLATELETS PRESENT; TOXIC GRANULATION PRESENT
--- NOTE | 2018-12-01 13:11 | RAD ---
Date of service: 12/01/2018 HISTORY: shortness of breath, wheezing COMPARISON: 11/29/2018 TECHNIQUE: 1 view obtained. FINDINGS: LUNGS: Opacity at right base possibly reflecting pneumonia or atelectasis. Follow-up advised. PLEURA: Mildly elevated right hemidiaphragm. Opacity at left costophrenic angle may reflect small pleural effusion. Right costophrenic angle is clear. No pneumothorax. CARDIOVASCULAR: No aortic atherosclerotic calcification present. Normal cardiac size. No pulmonary vascular congestion. OSSEOUS STRUCTURES: No significant abnormalities. VISUALIZED UPPER ABDOMEN: Normal. OTHER FINDINGS: None. IMPRESSION: Right basilar opacity. Possible pneumonia. Possible small left pleural effusion.
[2018-12-01] MEDS: (Lantus) Insulin Glargine, Recombinant SC SCH (21:55)
--- NOTE | 2018-12-02 00:51 | CP.PCM.PN ---
<ClarisaBelkis Y - Last Filed: 12/02/18 01:52> Subjective - Date & Time of Evaluation Date of Evaluation: 12/02/18 Time of Evaluation: 04:15 - Subjective Subjective: PGY-1 Medicine Progress Note for Dr. Cornelius Patient was seen and examined in no acute distress with family at bedside. Family notes that his gown over the area of the dressing were becoming moist. They also noted that he was audibly wheezing but reported he was comfortable with no shortness of breath or having difficulty breathing. He is not audibly wheezing at time of interview. His pain was well controlled with the OnQ and patient has no new complaints. Patient has been tolerating diet, but hasn't been eating his normal amount per family. Objective - Vital Signs/Intake and Output Vital Signs (last 24 hours): Temp Pulse Resp BP Pulse Ox 97.9 F 81 20 134/77 100 12/01/18 15:20 12/01/18 20:00 12/01/18 15:20 12/01/18 15:20 12/01/18 15:20 Intake and Output: 12/01/18 12/02/18 18:59 06:59 Intake Total 300 300 Output Total 140 30 Balance 160 270 - Medications Medications: Current Medications Acetaminophen (Tylenol 325mg Tab) 650 mg PO Q6 [facility] Last Admin: 12/01/18 17:35 Dose: Not Given Al Hydrox/Mg Hydrox/Simethicone (Maalox Plus 30 Ml) 30 ml PO Q6H PRN PRN Reason: Indigestion / Heartburn Dextrose (Dextrose 50% Inj) 0 ml IV STAT PRN; Protocol PRN Reason: Hypoglycemia Protocol Dextrose (Glutose 15) 0 gm PO ONCE PRN; Protocol PRN Reason: Hypoglycemia Protocol Docusate Sodium (Colace) 100 mg PO BID PRN PRN Reason: Constipation Famotidine (Pepcid) 20 mg IVP DAILY [facility] Last Admin: 12/01/18 09:35 Dose: 20 mg Finasteride (Proscar) 5 mg PO DAILY [facility] Last Admin: 12/01/18 09:35 Dose: 5 mg Glucagon (Glucagen Diagnostic Kit) 0 mg IM STAT PRN; Protocol PRN Reason: Hypoglycemia Protocol Heparin Sodium (Porcine) (Heparin) 5,000 units SC Q8 [facility] Last Admin: 03/23/19 21:56 Dose: 5,000 units BUPIVACAINE 0.125%/0.9% NACL (Bupivacaine-Ns 0.125% On-Q Saturator) 600 mls @ 6 mls/hr IJ ONCE ONE Stop: 12/04/18 14:59 Insulin Glargine (Lantus) 20 unit SC HS [facility] Last Admin: 12/01/18 21:55 Dose: Not Given Metformin HCl (Glucophage) 850 mg PO TID [facility] Last Admin: 12/01/18 17:35 Dose: Not Given Ondansetron HCl (Zofran Inj) 4 mg IVP Q4 PRN PRN Reason: Nausea/Vomiting Pantoprazole Sodium (Protonix Inj) 40 mg IVP DAILY [facility] Last Admin: 12/01/18 09:54 Dose: 40 mg Sennosides (Senokot Tab) 8.6 mg PO BID [facility] Last Admin: 12/01/18 17:34 Dose: 8.6 mg Sitagliptin Phosphate (Januvia) 50 mg PO DAILY [facility] Last Admin: 12/01/18 09:35 Dose: 50 mg Tamsulosin HCl (Flomax) 0.4 mg PO DAILY [facility] Last Admin: 12/01/18 09:36 Dose: 0.4 mg Tramadol HCl (Ultram) 50 mg PO Q6H PRN PRN Reason: Pain, moderate (4-7) Last Admin: 12/01/18 11:46 Dose: 50 mg - Labs Labs: 12/01/18 07:03 12/01/18 07:03 - Constitutional Appears: Non-toxic, No Acute Distress - Head Exam Head Exam: ATRAUMATIC, NORMAL INSPECTION, NORMOCEPHALIC - Eye Exam Eye Exam: EOMI, Normal appearance - ENT Exam ENT Exam: Mucous Membranes Moist, Normal Exam - Neck Exam Neck Exam: Normal Inspection - Respiratory Exam Respiratory Exam: Decreased Breath Sounds, Rales (mild in L lower lobe), NORMAL BREATHING PATTERN. absent: Rhonchi, Wheezes - Cardiovascular Exam Cardiovascular Exam: Tachycardia, +S1, +S2 - GI/Abdominal Exam GI & Abdominal Exam: Distended (mildly), Tenderness (diffuse) Additional comments: Multiple abdominal incisions bandaged, dried ss drainage. Right shavon drain w/ ss output. OnQ catheters in place. - Extremities Exam Extremities Exam: absent: Calf Tenderness, Pedal Edema - Neurological Exam Neurological Exam: Alert, Awake, Oriented x3 - Psychiatric Exam Psychiatric exam: Normal Affect, Normal Mood - Skin Skin Exam: Dry, Normal Color, Warm Assessment and Plan - Assessment and Plan (Free Text) Assessment: 78 year old male w/ pmhx of DM2, BPH admitted s/p lap converted to open subtotal dalila; POD #4 Plan: DM2 continue home 20U HS continue home metformin 850mg po TID continue home januvia 50mg po qd accuchecks ACHS hypoglycemia protocol IVF stopped, pt tolerating po intake Mod carb diet BPH/Urinary retention youngblood inserted 2/2 urinary retention s/p sx continue home flomax 0.4mg po qd continue home proscar 5mg po qd s/p open subtotal dalila; POD #3 -antiemetics -pain control -management per primary, Dr. Lopes Wheezing CXR (3): crowded bronchovascular markings and mild bibasilar atelectasis. Sm all effusions L>R; IVF decreased CXR (3): R basilar opacity. possible pneumonia. possible small left pleural effusion vitals stable, WBC downtrending, afebrile -consider starting abx vs. fluid retention PPX VTE: heparin q8, SCDs GI: Pepcid 20mg IVP qd PT encourage IS <Trung Cornelius - Last Filed: 12/02/18 07:52> Objective - Vital Signs/Intake and Output Vital Signs (last 24 hours): Temp Pulse Resp BP Pulse Ox 98.2 F 78 20 143/75 95 12/02/18 04:15 12/02/18 04:15 12/02/18 04:15 12/02/18 04:15 12/02/18 04:15 Intake and Output: 12/02/18 12/02/18 06:59 18:59 Intake Total 300 Output Total 60 Balance 240 - Medications Medications: Current Medications Acetaminophen (Tylenol 325mg Tab) 650 mg PO Q6 [facility] Last Admin: 12/02/18 05:22 Dose: 650 mg Al Hydrox/Mg Hydrox/Simethicone (Maalox Plus 30 Ml) 30 ml PO Q6H PRN PRN Reason: Indigestion / Heartburn Dextrose (Dextrose 50% Inj) 0 ml IV STAT PRN; Protocol PRN Reason: Hypoglycemia Protocol Dextrose (Glutose 15) 0 gm PO ONCE PRN; Protocol PRN Reason: Hypoglycemia Protocol Docusate Sodium (Colace) 100 mg PO BID PRN PRN Reason: Constipation Famotidine (Pepcid) 20 mg IVP DAILY [facility] Last Admin: 12/01/18 09:35 Dose: 20 mg Finasteride (Proscar) 5 mg PO DAILY [facility] Last Admin: 12/01/18 09:35 Dose: 5 mg Glucagon (Glucagen Diagnostic Kit) 0 mg IM STAT PRN; Protocol PRN Reason: Hypoglycemia Protocol Heparin Sodium (Porcine) (Heparin) 5,000 units SC Q8 [facility] Last Admin: 12/02/18 05:22 Dose: 5,000 units BUPIVACAINE 0.125%/0.9% NACL (Bupivacaine-Ns 0.125% On-Q Saturator) 600 mls @ 6 mls/hr IJ ONCE ONE Stop: 12/04/18 14:59 Insulin Glargine (Lantus) 10 unit SC HS [facility] Metformin HCl (Glucophage) 850 mg PO TID [facility] Last Admin: 12/01/18 17:35 Dose: Not Given Ondansetron HCl (Zofran Inj) 4 mg IVP Q4 PRN PRN Reason: Nausea/Vomiting Pantoprazole Sodium (Protonix Inj) 40 mg IVP DAILY [facility] Last Admin: 12/01/18 09:54 Dose: 40 mg Sennosides (Senokot Tab) 8.6 mg PO BID [facility] Last Admin: 12/01/18 17:34 Dose: 8.6 mg Sitagliptin Phosphate (Januvia) 50 mg PO DAILY [facility] Last Admin: 12/01/18 09:35 Dose: 50 mg Tamsulosin HCl (Flomax) 0.4 mg PO DAILY [facility] Last Admin: 12/01/18 09:36 Dose: 0.4 mg Tramadol HCl (Ultram) 50 mg PO Q6H PRN PRN Reason: Pain, moderate (4-7) Last Admin: 12/01/18 11:46 Dose: 50 mg - Labs Labs: 12/01/18 07:03 12/01/18 07:03 Attending/Attestation - Attestation I have personally seen and examined this patient.: Yes I have fully participated in the care of the patient.: Yes I have reviewed all pertinent clinical information, including history, physical exam and plan: Yes Notes (Text): 12/02/18 07:46 Medical attending: Patient was seen and examined by me. Reviewed the above note by the resident and agree with the above note The patient CXRAY suggest possible R lung pneumonia and some venous congestion. Patient reports he has cough as well as sputum production. No fevers recorded, and he does not have an elevated WBC We repeatedly told him to use incentive spiromter before however it does not appear he has been using it Will get CT of chest without contrast, check sputum culture, blood culture. It would have been simpler to get PA/Lateral films but the nursing staff say he is not steady on his feet and needs rolling walker Because of the PCN and Bactrim allergies I am a little reluctant to give emperic abx He stated abdominal pain is well controlled With reguards to his diabetes - his accuchecks have recently all been in the 80s and 90s. His appettite is not great. For now decrease Lantus to 10 and also hold the metformin. He is on a [facility] Trung Wrightm
--- NOTE | 2018-12-02 08:06 | CP.PCM.PN ---
Subjective - Date & Time of Evaluation Date of Evaluation: 12/02/18 Time of Evaluation: 08:03 - Subjective Subjective: SURGERY NOTE FOR DR. PARKER 78M seen and examined at bedside. Patient states he does have abdominal pain, denies nausea or vomiting. He is tolerating diet. Not using IS well Objective - Vital Signs/Intake and Output Vital Signs (last 24 hours): Temp Pulse Resp BP Pulse Ox 98.2 F 78 20 143/75 95 12/02/18 04:15 12/02/18 07:47 12/02/18 04:15 12/02/18 04:15 12/02/18 04:15 Intake and Output: 12/02/18 12/02/18 06:59 18:59 Intake Total 300 Output Total 60 Balance 240 - Medications Medications: Current Medications Acetaminophen (Tylenol 325mg Tab) 650 mg PO Q6 [facility] Last Admin: 12/02/18 05:22 Dose: 650 mg Al Hydrox/Mg Hydrox/Simethicone (Maalox Plus 30 Ml) 30 ml PO Q6H PRN PRN Reason: Indigestion / Heartburn Dextrose (Dextrose 50% Inj) 0 ml IV STAT PRN; Protocol PRN Reason: Hypoglycemia Protocol Dextrose (Glutose 15) 0 gm PO ONCE PRN; Protocol PRN Reason: Hypoglycemia Protocol Docusate Sodium (Colace) 100 mg PO BID PRN PRN Reason: Constipation Famotidine (Pepcid) 20 mg IVP DAILY [facility] Last Admin: 12/01/18 09:35 Dose: 20 mg Finasteride (Proscar) 5 mg PO DAILY [facility] Last Admin: 12/01/18 09:35 Dose: 5 mg Glucagon (Glucagen Diagnostic Kit) 0 mg IM STAT PRN; Protocol PRN Reason: Hypoglycemia Protocol Heparin Sodium (Porcine) (Heparin) 5,000 units SC Q8 [facility] Last Admin: 12/02/18 05:22 Dose: 5,000 units BUPIVACAINE 0.125%/0.9% NACL (Bupivacaine-Ns 0.125% On-Q Hydraulic Press In Operator) 600 mls @ 6 mls/hr IJ ONCE ONE Stop: 12/04/18 14:59 Insulin Glargine (Lantus) 10 unit SC HS [facility] Metformin HCl (Glucophage) 850 mg PO TID [facility] Last Admin: 12/01/18 17:35 Dose: Not Given Ondansetron HCl (Zofran Inj) 4 mg IVP Q4 PRN PRN Reason: Nausea/Vomiting Pantoprazole Sodium (Protonix Inj) 40 mg IVP DAILY [facility] Last Admin: 12/01/18 09:54 Dose: 40 mg Sennosides (Senokot Tab) 8.6 mg PO BID [facility] Last Admin: 12/01/18 17:34 Dose: 8.6 mg Sitagliptin Phosphate (Januvia) 50 mg PO DAILY [facility] Last Admin: 12/01/18 09:35 Dose: 50 mg Tamsulosin HCl (Flomax) 0.4 mg PO DAILY [facility] Last Admin: 12/01/18 09:36 Dose: 0.4 mg Tramadol HCl (Ultram) 50 mg PO Q6H PRN PRN Reason: Pain, moderate (4-7) Last Admin: 12/01/18 11:46 Dose: 50 mg - Labs Labs: 12/01/18 07:03 12/01/18 07:03 - Constitutional Appears: Non-toxic, No Acute Distress - Respiratory Exam Respiratory Exam: NORMAL BREATHING PATTERN Additional comments: weak IS - Cardiovascular Exam Cardiovascular Exam: REGULAR RHYTHM, +S1, +S2 - GI/Abdominal Exam GI & Abdominal Exam: Soft, Tenderness. absent: Distended, Firm, Guarding, Rigid, Rebound Additional comments: serossang output in shavon On-Q finished - Neurological Exam Neurological Exam: Alert, Awake Assessment and Plan - Assessment and Plan (Free Text) Assessment: 78M s/p open subtotal cholecystectomy POD#4 Plan: - Pain control - On DC'd - I's & O's - PT - Encourage OOB/Ambulation/IS - f/u CT chest r/o PNA - Further recommendations as per Dr. Moses Traore, PGY3
[2018-12-02 08:11] LABS: BASO % 0.5 % (0.0-2.0); EOS # 0.3 K/uL (0.0-0.7); EOS % 4.9 % (0.0-4.0); HEMOGLOBIN 8.6 g/dL (12.0-18.0); LYMPH # 0.9 K/uL (1.0-4.3); LYMPH % 13.2 % (20.0-40.0); MEAN CELL VOLUME 86.8 fL (80.0-94.0); MEAN CORPUSCULAR HEMOGLOBIN 30.2 pg (27.0-31.0); MEAN CORPUSCULAR HGB CONC 34.7 g/dL (33.0-37.0); MEAN PLATELET VOLUME 7.9 fL (7.2-11.7); MONO # 0.5 K/uL (0.0-0.8); MONO % 7.7 % (0.0-10.0); NEUT # 4.8 K/uL (1.8-7.0); NEUT % 73.7 % (50.0-75.0); NRBC % 0.1 % (0.0-2.0); RBC 2.84 Mil/uL (4.40-5.90); RED CELL DISTRIBUTION WIDTH 14.9 % (11.5-14.5); WHITE BLOOD COUNT 6.5 K/uL (4.8-10.8)
[2018-12-02 08:31] LABS: ALB/GLOB RATIO 1.1 (1.0-2.1); ALT/SGPT 22 U/L (21-72); AST/SGOT 41 U/L (17-59); BLOOD UREA NITROGEN 17 mg/dL (9-20); CALCIUM 8.2 mg/dl (8.6-10.4); GFR NON-AFRICAN AMERICAN > 60
--- NOTE | 2018-12-02 11:14 | CT ---
Date of service: 12/02/2018 PROCEDURE: CT Chest without contrast HISTORY: Suspect Right lung pneumonia, status post surgery (reportedly day 4 status post cholecystectomy). COMPARISON: None available. TECHNIQUE: Contiguous axial images were obtained through the chest without intravenous contrast enhancement. Sagittal and coronal reconstructions were performed. Radiation dose (DLP): 852.92 mGy-cm. This CT exam was performed using one or more of the following dose reduction techniques: Automated exposure control, adjustment of the mA and/or kV according to patient size, and/or use of iterative reconstruction technique. FINDINGS: LUNGS: Right lower lobe subsegmental atelectasis. No torri infiltrate. No pulmonary mass. Probable dependent atelectasis posterior left lower lobe. MEDIASTINUM: Unremarkable thoracic aorta. No aneurysm. Cardiomegaly. Minimal dilatation of main pulmonary artery to a diameter of 3.2 cm. No lymphadenopathy. There is atherosclerotic calcification of the thoracic aorta. PLEURA: Trace right pleural effusion. No pneumothorax. BONES: No fracture. No destructive lesion. UPPER ABDOMEN: Day 4 status post cholecystectomy. There is fluid beneath the dome of the right hemidiaphragm. There is an irregular contour of the lateral border of the right lobe of the liver, uncertain significance. Follow-up advised. There is a small amount of free intraperitoneal air consistent with recent surgery. A surgical drain is seen at the lower right abdomen. OTHER FINDINGS: None. IMPRESSION: No evidence of pneumonia. Right lower lobe subsegmental atelectasis and trace right pleural effusion. Postoperative changes in abdomen. Irregular contour of right lobe of liver is of uncertain significance, status post cholecystectomy. This may be artifactual due to the fluid collection adjacent to this. Followup contrast enhanced CT examination should be considered. Minimal free intraperitoneal air consistent with very recent surgery.
[2018-12-02] MEDS: (Lantus) Insulin Glargine, Recombinant SC SCH ×2 (22:35→22:39)
[2018-12-03] MEDS ORDERED: Dextrose 50% SYRINGE Inj (50 ml) IV STA (07:00)
[2018-12-03 07:30] LABS: BASO % 0.7 % (0.0-2.0); EOS # 0.4 K/uL (0.0-0.7); EOS % 6.2 % (0.0-4.0); HEMOGLOBIN 9.3 g/dL (12.0-18.0); LYMPH # 1.1 K/uL (1.0-4.3); LYMPH % 15.9 % (20.0-40.0); MEAN CELL VOLUME 86.6 fL (80.0-94.0); MEAN CORPUSCULAR HEMOGLOBIN 29.3 pg (27.0-31.0); MEAN CORPUSCULAR HGB CONC 33.8 g/dL (33.0-37.0); MEAN PLATELET VOLUME 7.6 fL (7.2-11.7); MONO # 0.6 K/uL (0.0-0.8); MONO % 9.1 % (0.0-10.0); NEUT # 4.8 K/uL (1.8-7.0); NEUT % 68.1 % (50.0-75.0); NRBC % 0.1 % (0.0-2.0); RBC 3.16 Mil/uL (4.40-5.90); RED CELL DISTRIBUTION WIDTH 14.6 % (11.5-14.5)
[2018-12-03 07:53] LABS: ALB/GLOB RATIO 1.1 (1.0-2.1); ALBUMIN 3.2 g/dL (3.5-5.0); ALT/SGPT 26 U/L (21-72); AST/SGOT 37 U/L (17-59); BLOOD UREA NITROGEN 14 mg/dL (9-20); CALCIUM 8.3 mg/dl (8.6-10.4); GFR NON-AFRICAN AMERICAN > 60
--- NOTE | 2018-12-03 09:45 | CP.PCM.PN ---
Subjective - Date & Time of Evaluation Date of Evaluation: 12/03/18 Time of Evaluation: 07:15 - Subjective Subjective: Patient examined at bedside. Patient reports he is eager to leave, as he has an appt with his PMD, Dr. Pressley tomorrow. Patient denies complaints. Reports he is using the incentive spirometer as instructed, denies shortness of breath, cough. Patient reports he is tolerating his diet, denies abdominal pain, nausea, urinary retention. Objective - Vital Signs/Intake and Output Vital Signs (last 24 hours): Temp Pulse Resp BP Pulse Ox 98.7 F 88 20 131/67 95 12/03/18 07:00 12/03/18 07:00 12/03/18 07:00 12/03/18 07:00 12/03/18 07:00 Intake and Output: 12/03/18 12/03/18 06:59 18:59 Intake Total 160 Output Total 1340 Balance -1180 - Medications Medications: Current Medications Acetaminophen (Tylenol 325mg Tab) 650 mg PO Q6 [facility] Last Admin: 12/03/18 05:23 Dose: 650 mg Al Hydrox/Mg Hydrox/Simethicone (Maalox Plus 30 Ml) 30 ml PO Q6H PRN PRN Reason: Indigestion / Heartburn Dextrose (Dextrose 50% Inj) 0 ml IV STAT PRN; Protocol PRN Reason: Hypoglycemia Protocol Dextrose (Glutose 15) 0 gm PO ONCE PRN; Protocol PRN Reason: Hypoglycemia Protocol Docusate Sodium (Colace) 100 mg PO BID PRN PRN Reason: Constipation Finasteride (Proscar) 5 mg PO DAILY [facility] Last Admin: 12/02/18 10:00 Dose: 5 mg Glucagon (Glucagen Diagnostic Kit) 0 mg IM STAT PRN; Protocol PRN Reason: Hypoglycemia Protocol Heparin Sodium (Porcine) (Heparin) 5,000 units SC Q8 [facility] Last Admin: 12/03/18 05:24 Dose: 5,000 units BUPIVACAINE 0.125%/0.9% NACL (Bupivacaine-Ns 0.125% On-Q Pantograph Transferrer) 600 mls @ 6 mls/hr IJ ONCE ONE Stop: 12/04/18 14:59 Insulin Glargine (Lantus) 10 unit SC HS [facility] Last Admin: 12/02/18 22:39 Dose: Not Given Metformin HCl (Glucophage) 850 mg PO TID [facility] Last Admin: 12/01/18 17:35 Dose: Not Given Ondansetron HCl (Zofran Inj) 4 mg IVP Q4 PRN PRN Reason: Nausea/Vomiting Pantoprazole Sodium (Protonix Inj) 40 mg IVP DAILY [facility] Last Admin: 12/02/18 10:00 Dose: 40 mg Sennosides (Senokot Tab) 8.6 mg PO BID [facility] Last Admin: 12/02/18 19:00 Dose: 8.6 mg Sitagliptin Phosphate (Januvia) 50 mg PO DAILY [facility] Last Admin: 12/02/18 10:00 Dose: 50 mg Tamsulosin HCl (Flomax) 0.4 mg PO DAILY [facility] Last Admin: 12/02/18 10:00 Dose: 0.4 mg Tramadol HCl (Ultram) 50 mg PO Q6H PRN PRN Reason: Pain, moderate (4-7) Last Admin: 12/01/18 11:46 Dose: 50 mg - Labs Labs: 12/03/18 06:53 12/03/18 06:53 - Constitutional Appears: Non-toxic, No Acute Distress - Head Exam Head Exam: ATRAUMATIC, NORMAL INSPECTION, NORMOCEPHALIC - Eye Exam Eye Exam: EOMI, Normal appearance - ENT Exam ENT Exam: Mucous Membranes Moist, Normal Exam - Neck Exam Neck Exam: Normal Inspection - Respiratory Exam Respiratory Exam: Decreased Breath Sounds, NORMAL BREATHING PATTERN. absent: Respiratory Distress - GI/Abdominal Exam GI & Abdominal Exam: Distended, Soft. absent: Tenderness Additional comments: horizontal abdominal incision, stapled, no drainage erythema. Right shavon with minimal ss fluid - Extremities Exam Extremities Exam: Normal Inspection. absent: Calf Tenderness, Pedal Edema - Neurological Exam Neurological Exam: Alert, Awake - Psychiatric Exam Psychiatric exam: Flat Affect - Skin Skin Exam: Dry, Normal Color, Warm Assessment and Plan - Assessment and Plan (Free Text) Assessment: 78 year old male w/ pmhx of DM2, BPH admitted s/p lap converted to open subtotal dalila; POD #5 Plan: Suspected PNA CT chest: No evidence of PNA. RLL subsegmental atelectasis and trace R pleural effusion. CXR: crowded bronchovascular markings and mild bibasilar atelectasis. Small e ffusions L>R; IVF decreased Encourage incentive spirometer DM2 Lantus decreased to 10U HS home metformin 850mg po TID; HELD continue home januvia 50mg po qd accuchecks ACHS hypoglycemia protocol IVF stopped, pt tolerating po intake Mod carb diet BPH/Urinary retention youngblood inserted 2/2 urinary retention s/p sx continue home flomax 0.4mg po qd continue home proscar 5mg po qd s/p open subtotal dalila; POD #5 -antiemetics -pain control -management per primary, Dr. Lopes PPX VTE: heparin q8, SCDs GI: Pepcid 20mg IVP qd PT encourage IS Dispo: Patient to resume home DM2 management upon discharge when tolerating adequate PO intake Discussed w/ Dr. Jenny Jones, PGY-1
--- NOTE | 2018-12-03 17:09 | CP.PCM.PN ---
Subjective - Date & Time of Evaluation Date of Evaluation: 12/03/18 Time of Evaluation: 06:45 - Subjective Subjective: General Surgery Dr. Lopes Pt seen and examined @bedside. No acute events overnight. Pt has no complaints. denies F/C, N/V, D/C. pain well controlled. tolerating diet. (+)BM/Flatus. Shavon 100cc x16hrs Objective - Vital Signs/Intake and Output Vital Signs (last 24 hours): Temp Pulse Resp BP Pulse Ox 98.7 F 78 20 131/67 95 12/03/18 07:00 12/03/18 08:12 12/03/18 07:00 12/03/18 07:00 12/03/18 07:00 Intake and Output: 12/03/18 12/03/18 06:59 18:59 Intake Total 160 Output Total 1340 40 Balance -1180 -40 - Medications Medications: Current Medications Acetaminophen (Tylenol 325mg Tab) 650 mg PO Q6 [facility] Last Admin: 12/03/18 13:00 Dose: Not Given Al Hydrox/Mg Hydrox/Simethicone (Maalox Plus 30 Ml) 30 ml PO Q6H PRN PRN Reason: Indigestion / Heartburn Dextrose (Dextrose 50% Inj) 0 ml IV STAT PRN; Protocol PRN Reason: Hypoglycemia Protocol Dextrose (Glutose 15) 0 gm PO ONCE PRN; Protocol PRN Reason: Hypoglycemia Protocol Docusate Sodium (Colace) 100 mg PO BID PRN PRN Reason: Constipation Finasteride (Proscar) 5 mg PO DAILY [facility] Last Admin: 12/03/18 09:46 Dose: 5 mg Glucagon (Glucagen Diagnostic Kit) 0 mg IM STAT PRN; Protocol PRN Reason: Hypoglycemia Protocol Heparin Sodium (Porcine) (Heparin) 5,000 units SC Q8 [facility] Last Admin: 12/03/18 13:35 Dose: 5,000 units BUPIVACAINE 0.125%/0.9% NACL (Bupivacaine-Ns 0.125% On-Q Dictaphone Operator) 600 mls @ 6 mls/hr IJ ONCE ONE Stop: 12/04/18 14:59 Insulin Glargine (Lantus) 10 unit SC HS [facility] Last Admin: 12/02/18 22:39 Dose: Not Given Metformin HCl (Glucophage) 850 mg PO TID [facility] Last Admin: 12/01/18 17:35 Dose: Not Given Ondansetron HCl (Zofran Inj) 4 mg IVP Q4 PRN PRN Reason: Nausea/Vomiting Pantoprazole Sodium (Protonix Inj) 40 mg IVP DAILY [facility] Last Admin: 12/03/18 09:46 Dose: 40 mg Sennosides (Senokot Tab) 8.6 mg PO BID [facility] Last Admin: 12/03/18 09:46 Dose: Not Given Sitagliptin Phosphate (Januvia) 50 mg PO DAILY [facility] Last Admin: 12/03/18 09:45 Dose: Not Given Tamsulosin HCl (Flomax) 0.4 mg PO DAILY [facility] Last Admin: 12/03/18 09:46 Dose: 0.4 mg Tramadol HCl (Ultram) 50 mg PO Q6H PRN PRN Reason: Pain, moderate (4-7) Last Admin: 12/01/18 11:46 Dose: 50 mg - Labs Labs: 12/03/18 06:53 12/03/18 06:53 - Constitutional Appears: Non-toxic, No Acute Distress - Head Exam Head Exam: NORMAL INSPECTION - Eye Exam Eye Exam: Normal appearance - ENT Exam ENT Exam: Mucous Membranes Moist - Respiratory Exam Respiratory Exam: NORMAL BREATHING PATTERN. absent: Accessory Muscle Use, Respiratory Distress - Cardiovascular Exam Cardiovascular Exam: REGULAR RHYTHM. absent: Bradycardia, Tachycardia - GI/Abdominal Exam GI & Abdominal Exam: Soft. absent: Distended, Tenderness Additional comments: incisions c/d/i shavon in place - Extremities Exam Extremities Exam: Normal Inspection - Neurological Exam Neurological Exam: Alert, Awake - Psychiatric Exam Psychiatric exam: Normal Affect, Normal Mood - Skin Skin Exam: Dry, Intact, Normal Color, Warm Assessment and Plan - Assessment and Plan (Free Text) Assessment: 78 y/o M POD#5 s/o lap converted to open cholecystectomy Plan: - ADAT - aggressive resp therapy - cont pain management - encourage OOB to chair/Amb/IS use - daily PT/OT - GI/DVT PPx Pt discussed w/ Dr. Moses Owen DO PGY3
[2018-12-03] MEDS: (Lantus) Insulin Glargine, Recombinant SC SCH (22:52)
[2018-12-04 01:01] VITALS: RESP 20; O2SAT 96
[2018-12-04 07:53] VITALS: BP 112/58; PULSE 79; TEMP 98.3
--- NOTE | 2018-12-04 10:41 | CP.PCM.DIS ---
Provider - Provider Date of Admission: 11/28/18 15:24 Attending physician: Landon Lopes Jr, MD Consults: 11/28/18 15:45 Hospitalist Consult Routine Comment: Consulting Provider: Trung Cornelius Consulting Physician: Trung Cornelius Reason for Consult: PMD Dr. Sotomayor; medical management Time Spent in preparation of Discharge (in minutes): 30 Diagnosis - Discharge Diagnosis (1) Chronic cholecystitis Status: Acute (2) S/P cholecystectomy Status: Acute Hospital Course - Lab Results Lab Results: Micro Results 12/02/18 12:04 Blood Blood Culture - Preliminary NO GROWTH AFTER 24 HOURS 12/02/18 10:51 Blood Blood Culture - Preliminary NO GROWTH AFTER 24 HOURS 12/02/18 12:04 Sputum Gram Stain - Final Most Recent Lab Values WBC 7.0 K/uL (4.8-10.8) 12/03/18 06:53 RBC 3.16 Mil/uL (4.40-5.90) L 12/03/18 06:53 Hgb 9.3 g/dL (12.0-18.0) L 12/03/18 06:53 Hct 27.4 % (35.0-51.0) L 12/03/18 06:53 MCV 86.6 fL (80.0-94.0) 12/03/18 06:53 MCH 29.3 pg (27.0-31.0) 12/03/18 06:53 MCHC 33.8 g/dL (33.0-37.0) 12/03/18 06:53 RDW 14.6 % (11.5-14.5) H 12/03/18 06:53 Plt Count 328 K/uL (130-400) 12/03/18 06:53 MPV 7.6 fL (7.2-11.7) 12/03/18 06:53 Neut % (Auto) 68.1 % (50.0-75.0) 12/03/18 06:53 Lymph % (Auto) 15.9 % (20.0-40.0) L 12/03/18 06:53 [place] % (Auto) 9.1 % (0.0-10.0) 12/03/18 06:53 Eos % (Auto) 6.2 % (0.0-4.0) H 12/03/18 06:53 Baso % (Auto) 0.7 % (0.0-2.0) 12/03/18 06:53 Neut # (Auto) 4.8 K/uL (1.8-7.0) 12/03/18 06:53 Lymph # (Auto) 1.1 K/uL (1.0-4.3) 12/03/18 06:53 [place] # (Auto) 0.6 K/uL (0.0-0.8) 12/03/18 06:53 Eos # (Auto) 0.4 K/uL (0.0-0.7) 12/03/18 06:53 Baso # (Auto) 0.0 K/uL (0.0-0.2) 12/03/18 06:53 Neutrophils % (Manual) 87 % (50-75) H 12/01/18 07:03 Band Neutrophils % 1 % (0-2) 12/01/18 07:03 Lymphocytes % (Manual) 7 % (20-40) L 12/01/18 07:03 Reactive Lymphs % 1 % (0-0) H 11/30/18 11:25 Monocytes % (Manual) 5 % (0-10) 12/01/18 07:03 Toxic Granulation Present 12/01/18 07:03 Platelet Estimate Normal (NORMAL) 12/01/18 07:03 Large Platelets Present 12/01/18 07:03 Polychromasia Slight 12/01/18 07:03 Hypochromasia (manual) Slight 12/01/18 07:03 Poikilocytosis (manual Slight 11/29/18 08:20 Anisocytosis (manual) Slight 12/01/18 07:03 Sodium 128 mmol/L (132-148) L 12/03/18 06:53 Potassium 3.9 mmol/L (3.6-5.2) 12/03/18 06:53 Chloride 96 mmol/L (98-107) L 12/03/18 06:53 Carbon Dioxide 25 mmol/L (22-30) 12/03/18 06:53 Anion Gap 11 (10-20) 12/03/18 06:53 BUN 14 mg/dL (9-20) 12/03/18 06:53 Creatinine 0.8 mg/dL (0.8-1.5) 12/03/18 06:53 Est GFR ( Amer) > 60 12/03/18 06:53 Est GFR (Non-Af Amer) > 60 12/03/18 06:53 POC Glucose (mg/dL) 251 mg/dL (65-110) H 12/03/18 07:22 Random Glucose 72 mg/dL (75-110) L 12/03/18 06:53 Calcium 8.3 mg/dl (8.6-10.4) L 12/03/18 06:53 Phosphorus 2.7 mg/dL (2.5-4.5) 12/03/18 06:53 Magnesium 1.9 mg/dL (1.6-2.3) 12/03/18 06:53 Total Bilirubin 0.6 mg/dL (0.2-1.3) 12/03/18 06:53 AST 37 U/L (17-59) 12/03/18 06:53 ALT 26 U/L (21-72) 12/03/18 06:53 Alkaline Phosphatase 68 U/L (38-126) 12/03/18 06:53 Total Protein 6.0 g/dL (6.3-8.3) L 12/03/18 06:53 Albumin 3.2 g/dL (3.5-5.0) L 12/03/18 06:53 Globulin 2.9 gm/dL (2.2-3.9) 12/03/18 06:53 Albumin/Globulin Ratio 1.1 (1.0-2.1) 12/03/18 06:53 Blood Type O POSITIVE 11/28/18 13:53 Antibody Screen Negative 11/28/18 13:53 - Hospital Course Hospital Course: 78 y/o M w/ PMHx of DM2, HTN, BPH, COPD presented to [facility] on 11/28/18 for elective laparoscopic cholecystectomy. Surgery was complicated by extensive adhesions requiring conversion to open cholecystectomy. Pt tolerated the procedure well but required hospital admission for pain management and diet tolerance. Stay was complicated by urinary retention, requiring 36hrs of youngblood catheter, and poor inspiratory effort, improved w/ aggressive ISP use. Pt seend and examined @bedside. Pt agitated overnight and family stayed for support. No other issues overnight. Pt has no complaints this AM. Pain is well controlled and tolerating regular diet. (+)BM/Flatus. Pt cleared for discharge from surgical standpoint. Discharge Exam - Head Exam Head Exam: NORMAL INSPECTION - Eye Exam Eye Exam: Normal appearance - ENT Exam ENT Exam: Mucous Membranes Moist - Respiratory Exam Respiratory Exam: Accessory Muscle Use, NORMAL BREATHING PATTERN. absent: Respiratory Distress - Cardiovascular Exam Cardiovascular Exam: REGULAR RHYTHM. absent: Tachycardia - GI/Abdominal Exam GI & Abdominal Exam: Soft, Tenderness (appropriate TTP floridalma-incisional). absent: Distended, Firm, Guarding, Rigid Additional comments: incisions c/d/i - Extremities Exam Extremities exam: normal inspection - Neurological Exam Neurological exam: Alert - Psychiatric Exam Psychiatric exam: Normal Affect, Normal Mood - Skin Skin Exam: Dry, Intact, Normal Color, Warm Discharge Plan - Follow Up Plan Condition: GOOD Disposition: HOME/ ROUTINE Instructions: Cholecystectomy, Open Surgery, Cholecystectomy (DC) Additional Instructions: Follow up with PMD in 7-10 days Follow up with Dr. Lopes in 7-10 days Resume all home medications Take all prescriptions as prescribed Pt may take Tylenol and Ibuprofen as needed for pain No heavy lifting (nothing greater than 10lbs) for 6 weeks Pt may shower however do not soak or scrub incisions No pools, tubs, or bathes Return to the ED/Call Dr. Lopes if fever >101, pain, redness, drainage from incision Referrals: [employer] [facility] [employer] [Outside] Landon Lopes Jr., MD [Staff Provider] - Ayanna Sotomayor MD [Family Provider] -
[2018-12-05] MEDS ORDERED: Pantoprazole 40 mg EC Tab PO SCH (10:00)
== END 2018-12-04 14:14 | disposition home or self-care (01) | DRG 262 ==
LOC: C.SDS 09:57 → C.9E 15:24 → C.9S 16:14 → C.6T 16:26
PROVIDERS: ADMIT Surgery Vascular Surgery; ATTEND Surgery Vascular Surgery
PROC: 0FT40ZZ Resection of Gallbladder, Open Approach (ICD-10-PCS; principal; 2018-11-28 14:15)
DX: K80.20 Calculus of gallbladder without cholecystitis without obstruction (principal); J44.9 Chronic obstructive pulmonary disease, unspecified; E11.9 Type 2 diabetes mellitus without complications; I10 Essential (primary) hypertension; K82.A1 Gangrene of gallbladder in cholecystitis; K80.10 Calculus of gallbladder with chronic cholecystitis without obstruction; N40.1 Benign prostatic hyperplasia with lower urinary tract symptoms; R33.8 Other retention of urine; Z87.891 Personal history of nicotine dependence

== ENCOUNTER 2018-12-21 10:50 | Outpatient (CLI) | payer OTHER | END 2018-12-21 10:51 | disposition home or self-care (01) | LOC: C.LAB 10:50 | DX: E11.9 Type 2 diabetes mellitus without complications (principal) ==